=== PATIENT | female | born 1970 | race Caucasian/White ===

== ENCOUNTER 2021-11-20 07:57 | Outpatient (CLI) | payer BC, SELFPAY ==
--- NOTE | 2021-11-20 08:15 | CRLHL7_ITS ---
For Patients: As a result of the Century Cures Act, medical imaging exams and procedure reports are released immediately into your electronic medical record. You may view this report before your referring provider. If you have questions, please contact your health care provider. ULTRASOUND-GUIDED BREAST BIOPSY AND POST-BIOPSY DIGITAL MAMMOGRAM FOR BIOPSY MARKER PLACEMENT CLINICAL HISTORY: Suspicious mass. COMPARISON STUDIES: 11/14/2021 mammogram and ultrasound. TECHNIQUE: Real-time ultrasound with image documentation was used for targeting the breast lesion. Core biopsy specimens were obtained using an automated gun with a 18- gauge biopsy needle. Post-biopsy CC and ML digital mammograms were obtained to document position of the biopsy marker. CONSENT and TIME OUT: The procedure, risks, and alternatives were explained to the patient and a consent was signed. [place] Protocol was followed including pre-procedure verification that relevant information/documentation was available, reviewed and properly matched to the patient; consent accurate and complete; and equipment and supplies available. Time Out was conducted just prior to starting procedure to verify the four required elements: patient identity, correct side/site marked (if applicable), procedure, relevant images/results properly labeled and displayed (if applicable). PROCEDURE: The patient was positioned supine on the ultrasound table. The breast was prepped with ChloraPrep. 8 cc 1 percent lidocaine used for local anesthesia. Core samples were obtained. A sterile metal biopsy clip was placed percutaneously to lisa the lesion position within the breast. The specimens were placed in 10% formalin and sent to the pathology department. Pressure was held on the biopsy site until all bleeding subsided. The skin incision was closed with Steri-Strips. An ice pack was positioned over the biopsy site. Post-biopsy instructions were reviewed with the patient, and a written copy was given to her. LATERALITY: LEFT breast. LESION: Hypoechoic and microlobular solid mass measuring 1.3 x 0.9 x 2.9 cm at 9 o`clock 6 cm from the nipple. SUSPICION FOR MALIGNANCY: High. NUMBER OF SAMPLES: 5. BIOPSY CLIP SHAPE: Coil. PROXIMITY OF CLIP TO TARGET: Within the lesion. IMPRESSION: Ultrasound-guided breast biopsy. When the pathology report is available, an addendum to this report will be made. ACR not applicable Dictated by Jason Figueroa MD @ 11/20/2021 8:58:33 AM jj/Dictated by: Jason Figueroa MD @ 11/20/2021 8:58:00 AM ----- ADDENDUM ----- Pathology demonstrates invasive ductal carcinoma, grade 3/3. This is concordant. Appropriate action recommended. Dictated by Jason Figueroa MD @ Nov 20 2021 8:58AM Signed by:?Jason Figueroa MD @11/20/2021 12:23:28 PM (Electronic Signature)
--- NOTE | 2021-11-20 09:00 | CRLHL7_ITS ---
For Patients: As a result of the Century Cures Act, medical imaging exams and procedure reports are released immediately into your electronic medical record. You may view this report before your referring provider. If you have questions, please contact your health care provider. PLEASE SEE ULTRASOUND-GUIDED LEFT BREAST BIOPSY PERFORMED SAME DAY CRL:albertina eng/Dictated by: Jason Figueroa MD @ 11/20/2021 8:58:00 AM (Electronically Signed)
== END 2021-11-20 07:58 | disposition home or self-care (01) ==
LOC: US 07:59
PROVIDERS: PCP Family Medicine; Visit Provider Family Medicine
DX: C50.812 Malignant neoplasm of overlapping sites of left female breast (principal); Z17.0 Estrogen receptor positive status [ER+]
CPT/HCPCS: 19083; 77065; 88305; 88341; 88342; 88360; A4648; A4649

== ENCOUNTER 2021-12-03 14:23 | Outpatient (CLI) | payer BC, SELFPAY ==
--- NOTE | 2021-12-03 14:30 | CRLHL7_ITS ---
For Patients: As a result of the Century Cures Act, medical imaging exams and procedure reports are released immediately into your electronic medical record. You may view this report before your referring provider. If you have questions, please contact your health care provider. BILATERAL BREAST MRI WITHOUT AND WITH GADOLINIUM, 12/03/2021 CLINICAL HISTORY: Recently diagnosed LEFT breast cancer after ultrasound-guided biopsy of the palpable mass at 9 o`clock in the LEFT breast. INDICATION FOR BREAST MRI: Staging of newly diagnosed breast cancer and screening of contralateral breast. Regional lymph nodes will also be assessed. COMPARISON STUDIES: Diagnostic bilateral mammogram 11/14/2021 and screening mammogram 05/18/2013; images from ultrasound-guided left breast biopsy 11/20/2021. CONTRAST: 20 mL Dotarem. TECHNIQUE: The patient was positioned prone using a breast coil. Multiple imaging sequences were obtained using 1-1.5 mm thick slices with no gap. The image sequences include T2-weighted STIR in the axial plane, T1-weighted nonfat-saturated gradient echo in the axial plane, pre- and post-contrast T1-weighted FLASH 3D with fat suppression in the axial plane, and T1-weighted FLASH high resolution 3D with fat suppression in the sagittal plane. Image post-processing was performed on a [employer] workstation. Complex 3D rendering including maximum intensity projections (MIPS) and volumetric renderings were obtained to optimize visualization of the extent of pathology and relationship to the nipple, skin, and chest wall. This aids in determining feasibility of breast conservation surgery. Subtraction, multiplanar reconstruction, mean curve determination, and angiogenesis mapping were also performed. The study was technically adequate. FINDINGS: Amount of Fibroglandular Tissue: Almost entirely fatty. Breast Background Enhancement: Minimal. RIGHT Breast: There is no suspicious mass or enhancement within the breast. LEFT Breast: At 9 o`clock, 4 cm posterior to the nipple, there is a 1.9 x 2.7 x 1.1 cm irregular mass with spiculated margins demonstrating rapid initial washout delayed phase enhancement. There is susceptibility artifact within the mass from the clip marking the site of biopsy proven malignancy. There is no suspicious mass or enhancement elsewhere within the breast. Lymph Nodes: No abnormal morphology lymph nodes. IMPRESSIONS AND RECOMMENDATIONS: 1. The biopsy-proven LEFT breast cancer measures up to 2.7 cm on MRI. Continued surgical/oncologic management is recommended. 2. No MRI evidence of malignancy in the RIGHT breast. 3. No abnormal morphology lymph nodes. BI-RADS Category 6: Known Biopsy-Proven Malignancy Dictated by Ruby Martin MD @ 12/04/2021 9:56:07 AM PT/Dictated by: Ruby Martin MD @ 12/04/2021 9:56:00 AM (Electronically Signed)
== END 2021-12-03 14:24 | disposition home or self-care (01) ==
PROVIDERS: PCP Family Medicine; Visit Provider Surgery
DX: C50.912 Malignant neoplasm of unspecified site of left female breast (principal)
CPT/HCPCS: 77049; A9575

== ENCOUNTER 2021-12-17 12:57 | Outpatient (CLI) | payer BC, SELFPAY | END 2021-12-17 12:58 | disposition home or self-care (01) | PROVIDERS: PCP Family Medicine; Visit Provider Nurse Practitioner Family | DX: C50.919 Malignant neoplasm of unspecified site of unspecified female breast (principal); Z51.11 Encounter for antineoplastic chemotherapy | CPT/HCPCS: 93306 ==

== ENCOUNTER 2021-12-25 08:33 | Day surgery (SDC) | payer BC, SELFPAY ==
[2021-12-25] VITALS (11 sets, daily range): BP systolic 115–140; BP diastolic 60–89; PULSE 36–63; RESP 14–16; TEMP 36.1–36.6; O2SAT 96–98; BMI 51.2
--- NOTE | 2021-12-25 | CRLHL7_ITS ---
For Patients: As a result of the Century Cures Act, medical imaging exams and procedure reports are released immediately into your electronic medical record. You may view this report before your referring provider. If you have questions, please contact your health care provider. INDICATION: Post port placement. TECHNIQUE: Chest 1 views. COMPARISON: None. FINDINGS: Cardiovascular and mediastinum: Heart size and vasculature are normal in caliber and appearance. Port-A-Cath with tip projecting at the cavoatrial junction. Lungs and pleural spaces: Lungs are clear. No sign of infiltrate or mass. No sign of pleural effusion. No pneumothorax. Bones and soft tissues: No significant findings. IMPRESSION: Right Port-A-Cath with tip projecting at the cavoatrial junction. No pneumothorax. Dictated by Maik Briggs MD @ 12/25/2021 2:06:09 PM (Electronically Signed)
[2021-12-25] MEDS: LACTATED RINGERS 1000 ML 1,000 ML 100 ML IV (09:00)
[2021-12-25] MEDS: SODIUM CHLORIDE 0.9 % (FLUSH) 10 ML SYRINGE IVF (09:13)
--- NOTE | 2021-12-25 10:12 | CRLHL7_ITS ---
For Patients: As a result of the Century Cures Act, medical imaging exams and procedure reports are released immediately into your electronic medical record. You may view this report before your referring provider. If you have questions, please contact your health care provider. INDICATION: Intra op Port-A-Cath placement. TECHNIQUE: Intra op Port-A-Cath placement. IMPRESSION: Intraoperative Port-A-Cath placement with tip projecting near the cavoatrial junction. Two images saved. Fluoroscopy time 65.1 seconds. Dictated by Maik Briggs MD @ 12/25/2021 11:37:50 AM (Electronically Signed)
[2021-12-25] MEDS: CEFAZOLIN 2 GM INJ IVP (10:14)
--- NOTE | 2021-12-25 11:21 | W.ANESCHARGE ---
Anesthesia Charges Start Date/Time Anesthesia Start Date: 12/25/21 Anesthesia Start Time: 10:26 Stop Date/Time Anesthesia Stop Date: 12/25/21 Anesthesia Stop Time: 11:25 Summary Emergency: No
[2021-12-25] MEDS: BUPIVACAINE 0.25% 30 ML INJECTION (11:22)
--- NOTE | 2021-12-25 11:30 | PM.GSPRC ---
Operative Note Date of procedure: 12/25/21 Type of Procedure: 1. Right internal jugular Port-A-Cath placement under ultrasound and fluoroscopy guidance. Procedure Description: After discussing the risks and benefits of the procedure, the patient signed informed consent.? The operative site was marked and the patient was brought to the operating room and placed on the operating table in supine position.? Care was taken to pad the patient's pressure points.?? The patient was then sedated by anesthesia.?? The operative site was then prepped and draped in the usual sterile fashion.? A time-out was then performed. ? Ultrasound was brought on to the field and right internal jugular vein was assessed. This was found to be large and easily compressible. The base of the neck directly overlying the internal jugular vein was then anesthetized with 1% lidocaine and 0.25% Marcaine mixture, and an introducer needle was inserted into the internal jugular vein using ultrasound guidance. Entry into the vein was confirmed by the presence of dark, nonpulsatile blood. A guide wire was advanced through the needle. The introducer needle was removed, leaving the wire in place. Fluoroscopy was brought onto the field and used to confirm the passage of the wire through the superior vena cava and into the inferior vena cava. Lidocaine was then used to infiltrate the port skin site, along with the proposed tunneling tract. A 3 cm incision was made at the site of the port pocket and subcutaneous tissue was dissected down using electrocautery. Subcutaneous pocket was created with blunt dissection and electrocautery. The catheter was advanced through the subcutaneous tissue using a tunneling trocar, exiting the incision at the base of the neck. The trocar was then disconnected. Fluoroscopy was again brought on to the field and the internal jugular vein and adjacent subcutaneous tissue was dilated with a pre-split introducer sheath in place. The wire was removed and the catheter was inserted into the introducer sheath. As the catheter was advanced, the sheath was split and divided, removing the sheath as the catheter was advanced into place. Fluoroscopy was again brought on to the field and the catheter position was examined. The entire course of the catheter was then viewed, and catheter was pulled back under direct visualization to ensure that the tip is in the SVC. The port was connected to the catheter tip and placed into previously created pocket. Prolene was used to place anchoring port sutures and the port was then secured in the pocket. The flow through the catheter was checked with a syringe, and found to be excellent. The incision at the base of the neck was then closed with a single interrupted 4-0 monocryl stitch and dressed with a Steri-Strip and a sterile bandage. Subdermal layer was re-approximated with interrupted 3-0 vicryl stitches and skin over the port was closed with 4-0 monocryl using subcuticular stitch. Sofia needle was inserted through the skin into the port and the port was flushed with injectable saline. The port was left accessed for upcoming chemotherapy treatment today. Steri strips, sterile 2x2 and Tegaderm was applied over the incision. The patient was then roused and brought to same day surgery in satisfactory condition. Sponge and needle counts were correct at the end of the procedure. Post procedure CXR was ordered to be done in same day surgery. Findings: Easily compressible right internal jugular vein. Anesthesia: MAC and local Surgeon: Chiara Sainz MD Estimated blood loss (mL): 5 Condition: stable Disposition: PACU
--- NOTE | 2021-12-25 11:31 | W.ANESCHARGE ---
Anesthesia Charges Start Date/Time Anesthesia Start Date: 12/25/21 Anesthesia Start Time: 10:26 Stop Date/Time Anesthesia Stop Date: 12/25/21 Anesthesia Stop Time: 11:25 Summary Emergency: No
--- NOTE | 2021-12-25 13:33 | SUR.PHASEII ---
Called Infusion Center to give update on patient heart rate. Per nurse, pt is clear to come to infusion if she is stable for discharge from [facility]. Pt's heart rate remains in 50's after medication administration by anesthesia MD. Pt's blood pressure remains stable, pt up and ambulating to bathroom independently, denies dizziness or light headness.
== END 2021-12-25 13:36 | disposition home or self-care (01) ==
PROVIDERS: PCP Family Medicine; Visit Provider Surgery
PROC: (CPT 36561; principal; 2021-12-25 09:45)
DX: Z45.2 Encounter for adjustment and management of vascular access device (principal); C50.212 Malignant neoplasm of upper-inner quadrant of left female breast; Z17.0 Estrogen receptor positive status [ER+]
CPT/HCPCS: 36561; 00532; 71045; C1788; J0690; J3490; J7120

== ENCOUNTER 2022-05-16 13:30 | Outpatient (RCR) | payer BC, SELFPAY ==
--- NOTE | 2021-12-18 14:25 | URNOTE ---
Request received for authorization for Fosaprepitant (J1453), Palonosetron (J2469), Cyclophosphamide (J9070), Doxorubicin (J9000)-Prior authorization is not required per [facility], [facility], sales representative [employer] call reference #[id number]. Prior authorization is required for Pegfilgrastim (J2506) through [employer] at [phone], and medication ordered from speciality pharmacy [facility] at [phone]. Karin [facility] [place] [place] was given information for Pegfilgrastim.
--- NOTE | 2021-12-18 17:40 | ONC.NURNOTE ---
Addendum entered by Kati Flores RN 12/21/21 15:14: Enrolled pt in a copay assistance program through [employer], habilitation training specialist of Fulphila. Application faxed to [phone]. [facility]'s copay assistance to assist pt in enrolling in [employer], a program through [facility]. Completion of SaveOn enrollment is only possible once the [employer] copay assistance is completed. [employer] (Fulphila habilitation training specialist): p: [phone], f: [phone] [employer]: [phone] [facility] Copay Assistance: [phone], M-F 8a-6p EST Original Note: Breast E Commerce Manager Note Submitted authorization for Neulasta through [employer]. Neulasta not covered; prefer biosimilar Fulphila. Prior Authorization approved for Fulphila 6mg SC q 14 days #2 with 1 refill. Case #[id number]. Prescription for Fulphila called in to [facility]; they will call pt to set up delivery for home administration. They will notify pt and clinic of copay once prescription is processed. 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 [employer]: [facility]: p ; f
[2021-12-21 12:31] LABS: Basophils Absolute Auto 0.04 K/uL (0.00-0.30); Basophils Percent Auto 0.7 % (0.0-3.0); Eosinophils Absolute Auto 0.11 K/uL (0.00-0.50); Eosinophils Percent Auto 1.9 % (0.0-7.0); Hematocrit 44.3 % (33.0-51.0); Hemoglobin* 15.2 gm/dL (12.0-16.0); Immature Granulocytes Abs Auto 0.01 K/uL (0.00-0.30); Lymphocytes Percent Auto 41.2 % (20-44); Mean Corpuscular HGB Conc 34 gm/dL (32-36); Mean Corpuscular Hemoglobin 32 pg (26-34); Mean Corpuscular Volume 93 fL (80-100); Monocytes Percent Auto 6.7 % (0.0-11.0); Neutrophils Absolute Auto 2.88 K/uL (1.7-7.0); Neutrophils Percent Auto 49.3 % (42.0-72.0); Platelet Count* 212 K/uL (140-440); RDW Coefficient of Variation % 12.8 % (11.5-15.5); Red Blood Count 4.77 m/uL (4.00-5.20); White Blood Count* 5.83 K/uL (4.50-11.00)
[2021-12-21 12:35] LABS: Slide Review Reflex No
[2021-12-21 12:50] LABS: Albumin* 4.3 g/dL (3.3-5.0); Chloride* 104 mmol/L (96-114)
[2021-12-21 12:51] LABS: Potassium* 3.7 mmol/L (3.6-5.1); Sodium* 142 mmol/L (135-149)
[2021-12-21 12:53] LABS: Aspartate Amino Transferase* 43 U/L (12-35); Bilirubin Total* 0.5 mg/dL (0.1-1.5); Carbon Dioxide* 29 mmol/L (20-32); Estimated Glomerular Filt Rate 67 ml/min; Total Protein* 7.1 g/dL (6.0-8.3)
[2021-12-21 12:54] LABS: Alanine Aminotransferase* 38 U/L (4-35); Alkaline Phosphatase* 58 U/L (40-150); Blood Urea Nitrogen* 21 mg/dL (7-30); Calcium* 9.7 mg/dL (8.4-10.6); Glucose* 99 mg/dL (60-115)
--- NOTE | 2021-12-24 10:31 | ONC.NURNOTE ---
Called pt to [facility] in [facility] She states she has not heard from [facility] all weekend. Called [facility] and resubmitted pt's enrollment with [employer]. Confirmed pt's enrollment with [employer] is complete; pt's copay will be $0. Shipment is scheduled for Tu12/25 with delivery 12/26. Notified pt.
[2021-12-25] MEDS: PALONOSETRON 0.25 MG/5 ML inj IV (14:56)
[2021-12-25] MEDS: dexAMETHasone 12 MG in 0.9 % SODIUM CHLORIDE 100 ml 100 ML 404.8 MG IVPB (14:56)
[2021-12-25] MEDS: FOSAPREPITANT 150 MG inj 150 MG in 0.9 % SODIUM CHLORIDE 250 ml 250 ML 800 MG IVPB (15:23)
--- NOTE | 2021-12-25 17:00 | ONC.NURNOTE ---
Pt tolerated 1st AC well; reviewed antiemetic schedule and new port placement care. Pt to self-inject Fulphila after 5pm tomorrow 12/26; her daughter who is a medical pathologist will administer for her. Pt comfortable, talking and laughing with her . HR 62 at discharge. See note from Jessenia Salas APRN re: postop sinus bradycardia.
--- NOTE | 2021-12-25 19:34 | A.ONCFU_ITS ---
Intake Intake Visit Reasons: Breast cancer Allergies acetaminophen [From Tylenol] Allergy (Severe, Verified 12/25/21 08:44) Hives Latex, Natural Rubber Adverse Reaction (Mild, Verified 12/25/21 08:44) Rash Home Medications Dexamethasone (Dexamethasone 4 Mg Tablet) 12 mg PO ONCE TOSHIA Stop: 12/25/21 23:59 Doxorubicin HCl (Doxorubicin 2 Mg/Ml Inj) 130 mg IVP ONCE TOSHIA Stop: 12/25/21 23:59 Last Admin: 12/25/21 15:52 Dose: 130 mg Cyclophosphamide 1,300 mg/ IV Miscellaneous Supplies 1 each/Sodium Chloride 256.5 mls @ 513 mls/hr IV ONCE TOSHIA Stop: 12/25/21 23:59 Last Infusion: 12/25/21 16:47 Dose: Infused Fosaprepitant 150 mg/ Sodium (Chloride) 255 mls @ 510 mls/hr IVPB ONCE TOSHIA Stop: 12/25/21 23:59 Last Infusion: 12/25/21 15:43 Dose: Infused Palonosetron (Palonosetron 0.25 Mg/5 Ml Inj) 0.25 mg IV ONCE TOSHIA Stop: 12/25/21 23:59 Last Admin: 12/25/21 14:56 Dose: 0.25 mg Referred by:: Don Brown MD Nutrition Screen Have you recently lost weight without trying?: no HPI HPI Patient Seen On:: Dec 25, 2021 Reason for consultation: Left breast cancer Bradycardia after portacath insertion earlier today, concern for concurrent administration of cardiotoxic chemotherapy History source: patient and family () Oncology Hx: 1. November 2021: Patient noted lump in left breast, reported to her primary care 2. November 2021: Mammogram completed showing asymmetry in the upper inner quadrant of the left breast at the 9 o'clock position. 3. 11/20/2021: Patient proceeded with an ultrasound, again showing an approximately 3 cm hypoechoic a mass in the 9 o'clock position of the left breast. Patient proceeded to core needle biopsy. Biopsy revealing an invasive ductal carcinoma, grade 3, angiolymphatic invasion not present, no associated DCIS. Estrogen was positive weakly at 11%, progesterone negative and HER2 was negative. Ki-67 60%. 4. 11/26/2021: Surgical consultation with Dr. Hyde 5. 12/03/2021: MRI bilateral breast completed, showing mass in the left breast consistent with previous findings, right breast negative for any concerning findings and no lymph nodes concerning bilaterally. 6. 12/13/2021: Medical oncology consultation for discussion surrounding neoadjuvant chemotherapy Patient is a delightful 51-year-old here today for medical oncology cons ultation and discussion surrounding her newly diagnosed breast cancer. She did meet earlier with the surgeon, status post imaging and biopsy showing asymmetric mass in the left breast, positive for invasive ductal carcinoma. Several weeks ago, she felt some changes in her left breast, and felt approximately a marble size nodule near the swelling. She did report this to her primary care, who proceeded with further workup with mammogram and ultrasound, showing an approximately 2.9 cm hypoechoic mass on the left breast. She underwent core needle biopsy, with pathology revealing an invasive ductal carcinoma grade 3, no angiolymphatic invasion and no associated DCIS, ER positive at 11%, NJ negative and HER2 negative with Ki-67 at 60%. She did meet with Dr. Hyde in surgery prior to our appointment for surgical discussion. Patient had a mammogram at approximately age 38 and had not had any mammograms up until recently when she found her lump. She has denies any previous breast issues or biopsies. She has never had radiation to the chest wall, no use of hormones, she did use control very shortly just before the onset of menopause. Age of onset of menses approximately age 10. , 2 miscarriages, both children , age at 1st live 19. She did not breast feed. She also has 3 non biological children through marriage to her . States she went through menopause approximately 5-6 years ago. She denies any cancer history for herself. Mom with a history of bladder cancer and lung cancer, she was a smoker. She is unsure of her dad history Maternal grandmother with colon cancer No cancer within her siblings Had genetic testing completed, still is awaiting results. Also completed a screening colonoscopy negative for cancer. She works as a direct care services person, she states she works 2 jobs and pretty much every day. She is to her Josue of 20 years. Two biological children 3 nonbiological children and 11 grandchildren She is a past smoker, stopped in 2011. Denies vape use. It has been years since her last alcoholic drink, denies any illicit drugs. She is feeling well today. She denies any headaches or dizziness. No chest pain or pressure, cough or shortness of breath. No abdominal pain or pressure, she does have a history of constipation however has not had that since her colonoscopy. No diarrhea. Appetite is good. She is fatigued, however she works 2 jobs pretty much 7 days a week. She does have bad shoulders and elbows related to her job, but no numbness or tingling. She denies any cardiac issues although she was told she had a murmur sometime back. Interval Hx: Ms. Alexis arrived ambulatory accompanied with her to the [facility] after having Port-A-Cath placed in surgery this morning. It was reported that she required romazicon reversal in recovery area due to worsening bradycardia with ventricular pulse rate in the 30s. She was discharged stable per report from recovery area. Oncology nurses with concern for administration of cardiotoxic chemotherapy today. Upon arrival, temperature 96.7?, pulse 77, respirations 18, blood pressure 136/72, O2 saturation 98% on room air. In chart review, no noted evidence for cardiovascular disease. Baseline echocardiogram obtained 12/17/2021 prior to cardiotoxic chemotherapy final impressions: 1. normal left ventricular size, borderline wall thickness, normal global systolic function, calculated ejection fraction of 68%. 2. no significant bowel disease detected. 3. the ascending aorta is dilated with maximal diameter of 3.8 cm. 4. normal estimated pulmonary pressures by tricuspid valve regurgitation velocity and right atrial pressure (13 mm Hg plus RAP). Obesity risk factor. Patient, alert,oriented, pleasant, skin dry and pink, eating a snack in [facility] Social History Smoking Status: Unknown if ever smoked How often do you have a drink containing alcohol: never How often do you have six or more drinks on one occasion: Never AUDIT-C Alcohol total score: 0 Non-prescribed substance use: denies use Caffeine: Yes Review of Systems Status of ROS Reports: 6 or more systems reviewed and unremarkable except as noted in History and below Narrative Denies shortness of breath, cough, rapid or irregular pulse, chest pain or pressure, history of cardiovascular disease, pedal edema, calf pain. She does endorse chronic dizziness upon arising and compensates by getting up slowly. This is chronic by her report. Exam Narrative Exam Narrative: Constitutional: Alert, oriented x3, fatigued-appearing, in no apparent distre ss. HEENT: JOSE ELIAS, dry mucous membranes, cranial nerves grossly intact. Lungs: Clear to auscultation anteriorly bilaterally. Respirations nonlabored an even. Cardiovascular: S1-S2. Distant heart tones. No extra heart tones murmurs or clicks detected Abdomen: soft, obese. MSK: MAEx4. No pedal edema. SKIN: Warm, dry, pink. Faint mild bruising at portacath site. No significant edema noted. ECOG Eastern Cooperative Oncology Group Performance Status (ECOG): 1 Results Results [facility] Chemistry: Sodium 142 mmol/L (135-149) 12/21/21 Potassium 3.7 mmol/L (3.6-5.1) 12/21/21 Chloride 104 mmol/L (96-114) 12/21/21 Carbon Dioxide 29 mmol/L (20-32) 12/21/21 Calcium 9.7 mg/dL (8.4-10.6) 12/21/21 Glucose 99 mg/dL (60-115) 12/21/21 BUN 21 mg/dL (7-30) 12/21/21 Creatinine 1.0 mg/dL (0.5-1.5) 12/21/21 Total Protein 7.1 g/dL (6.0-8.3) 12/21/21 Albumin 4.3 g/dL (3.3-5.0) 12/21/21 AST 43 U/L (12-35) H 12/21/21 ALT 38 U/L (4-35) H 12/21/21 Alkaline Phosphatase 58 U/L (40-150) 12/21/21 Total Bilirubin 0.5 mg/dL (0.1-1.5) 12/21/21 Estimated GFR 67 ml/min 12/21/21 [facility] Hematology: WBC 5.83 K/uL (4.50-11.00) 12/21/21 RBC 4.77 m/uL (4.00-5.20) 12/21/21 Hgb 15.2 gm/dL (12.0-16.0) 12/21/21 Hct 44.3 % (33.0-51.0) 12/21/21 MCV 93 fL (80-100) 12/21/21 MCH 32 pg (26-34) 12/21/21 MCHC 34 gm/dL (32-36) 12/21/21 Plt Count 212 K/uL (140-440) 12/21/21 Neut % (Auto) 49.3 % (42.0-72.0) 12/21/21 Neut # (Auto) 2.88 K/uL (1.7-7.0) 12/21/21 Lymph % (Auto) 41.2 % (20-44) 12/21/21 [place] % (Auto) 6.7 % (0.0-11.0) 12/21/21 Eos % (Auto) 1.9 % (0.0-7.0) 12/21/21 Baso % (Auto) 0.7 % (0.0-3.0) 12/21/21 Lab Results Reviewed: Yes I reviewed the patient's lab results MDM - Oncology Visit ECG Data Attestation: I personally reviewed and interpreted this ECG as follows: Interpretation: Low-voltage EKG. Ventricular rate 58 beats per minute. NJ interval 174 MS, QRS 84 MS, QTC 420/QTC 412 MS. Sinus bradycardia without additional ectopy. Other Provider Discussed patient with other provider: Dr. Sanjiv Doyle, Anesthesia Shared Decision Patient participated in the treatment plan decision making?: Yes Assessment & Plan Assessment & Plan (1) Breast cancer in female: Problem Comment: [id number], ER+(11%),NJ-HER2-, Gr3, Ki67 60% Code(s): C50.919 - Malignant neoplasm of unspecified site of unspecified female breast Category: Medical (2) Chemotherapy management, encounter for: Code(s): Z51.11 - Encounter for antineoplastic chemotherapy Category: Medical (3) Bradycardia: Code(s): R00.1 - Bradycardia, unspecified Category: Medical Plan Discussed bradycardia with DR. Doyle, anesthesia who noted that Ms. Alexis had bradycardia during entire case, but dropped pulse to 36-38, prompting him to administer partial reversal rumazicon. Ms Alexis was reported to remain alert in recovery, hemodynamically stable. On 3 electrode telemetry, sinus bradycardia during case. Based on his discussion, EKG obtained, which confirmed sinus bradycardia. Ms. Alexis denies heart history, except for slow pulse and dizziness with arising. Baseline Echo obtained prior to today's chemotherapy sufficient to proceed with treatment. - OK to proceed with first cycle of dose dense doxorubicin and cyclophosphamide today. Ms. Alexis was encouraged to push fluids and remain hydrated at home. She is to call for increased dizziness with position change or other neurologic symptoms. Recommend for her to discuss with Dr. Brown, her primary care provider, at her next visit and I will copy this note to him as well. Ms. Alexis was noted to tolerate chemotherapy today without incident. I will also update Bernarda Scherer APRN, CNP, [facility]. Ms. Alexis and her are aware of this plan and agreeable.
--- NOTE | 2021-12-26 14:14 | ONC.NURNOTE ---
Pt called today stating her fuljustolia did arrive today and her daughter plans on administering pt the drug around 6pm this evening.
--- NOTE | 2022-01-07 16:17 | ONC.NURNOTE ---
Received call from pt saying she developed diarrhea on Friday that continued over the weekend through today. She has been eating and drinking normal amounts until yesterday, citing throwing up in her mouth Friday and today. She notes she felt well despite having frequent loose, watery stools until today, as she was up in the night with frequent watery stools. She feels very tired today but denies fevers. When asked about diet changes, she notes she ate take out Friday around the time the diarrhea started. Recommended pt be seen by a PCP to r/o infection/food poisoning. Reviewed that once infectious process is ruled out, pt would take immodium per box instructions: 2 after 1st loose stool, then 1 after subsequent loose stools up to daily max. Also recommended OTC electrolyte drinks like Gatorade or Pedialyte. Checked in with pt this afternoon. She notes difficulty scheduling to see her PCP Dr. Brown today and was not seen by a stone sandblaster. Also, she began Immodium. She has taken 5 so far today and has been napping; she continues to have loose stools but notes she is feeling better overall. She has drunk 2 bottles of gatorade. Reviewed the risks of taking Imodium with an active infectious process, including worsening infection and possible treatment delay and reinforced need to see a PCP in the next day or so if symptoms continue off Imodium. Pt acknowledges.
[2022-01-10 08:07] LABS: Basophils Absolute Auto 0.06 K/uL (0.00-0.30); Basophils Percent Auto 0.9 % (0.0-3.0); Eosinophils Absolute Auto 0.01 K/uL (0.00-0.50); Eosinophils Percent Auto 0.2 % (0.0-7.0); Hematocrit 38.3 % (33.0-51.0); Hemoglobin* 13.4 gm/dL (12.0-16.0); Immature Granulocytes Abs Auto 0.14 K/uL (0.00-0.30); Immature Granulocytes Pct Auto 2.1 %; Lymphocytes Absolute Auto 1.96 K/uL (0.90-2.90); Lymphocytes Percent Auto 29.9 % (20-44); Mean Corpuscular HGB Conc 35 gm/dL (32-36); Mean Corpuscular Hemoglobin 32 pg (26-34); Mean Corpuscular Volume 91 fL (80-100); Monocytes Percent Auto 7.6 % (0.0-11.0); Neutrophils Absolute Auto 3.88 K/uL (1.7-7.0); Neutrophils Percent Auto 59.3 % (42.0-72.0); Platelet Count* 201 K/uL (140-440); RDW Coefficient of Variation % 12.7 % (11.5-15.5); Red Blood Count 4.22 m/uL (4.00-5.20); White Blood Count* 6.55 K/uL (4.50-11.00)
[2022-01-10 08:09] LABS: Slide Review Reflex No
[2022-01-10 08:20] LABS: Albumin* 3.8 g/dL (3.3-5.0); Chloride* 107 mmol/L (96-114)
[2022-01-10 08:21] LABS: Potassium* 3.5 mmol/L (3.6-5.1); Sodium* 139 mmol/L (135-149)
[2022-01-10 08:23] LABS: Alkaline Phosphatase* 69 U/L (40-150); Aspartate Amino Transferase* 30 U/L (12-35); Bilirubin Total* 0.3 mg/dL (0.1-1.5); Blood Urea Nitrogen* 17 mg/dL (7-30); Carbon Dioxide* 25 mmol/L (20-32); Creatinine* 0.8 mg/dL (0.5-1.5); Estimated Glomerular Filt Rate 88 ml/min; Total Protein* 6.3 g/dL (6.0-8.3)
[2022-01-10 08:24] LABS: Alanine Aminotransferase* 30 U/L (4-35); Calcium* 8.9 mg/dL (8.4-10.6); Glucose* 95 mg/dL (60-115)
[2022-01-10] MEDS: PALONOSETRON 0.25 MG/5 ML inj IV (09:27)
[2022-01-10] MEDS: dexAMETHasone 12 MG in 0.9 % SODIUM CHLORIDE 100 ml 100 ML 404.8 MG IVPB (10:01)
[2022-01-10] MEDS: FOSAPREPITANT 150 MG inj 150 MG in 0.9 % SODIUM CHLORIDE 250 ml 250 ML 765 MG IVPB (10:13)
[2022-01-10] MEDS: SODIUM CHLORIDE 0.9 % (FLUSH) 10 ML SYRINGE IVF (11:42)
[2022-01-10] MEDS: HEPARIN 500 UNIT/5 ML SYRINGE IVF (11:42)
[2022-01-10] MEDS: 0.9 % SODIUM CHLORIDE 250 ml IV (11:43)
[2022-01-23 09:04] LABS: Basophils Percent Auto 1.1 % (0.0-3.0); Eosinophils Absolute Auto 0.09 K/uL (0.00-0.50); Hematocrit 35.8 % (33.0-51.0); Hemoglobin* 12.2 gm/dL (12.0-16.0); Immature Granulocytes Abs Auto 0.76 K/uL (0.00-0.30); Immature Granulocytes Pct Auto 8.2 %; Mean Corpuscular HGB Conc 34 gm/dL (32-36); Mean Corpuscular Hemoglobin 32 pg (26-34); Mean Corpuscular Volume 94 fL (80-100); Monocytes Percent Auto 7.3 % (0.0-11.0); Neutrophils Absolute Auto 6.33 K/uL (1.7-7.0); Neutrophils Percent Auto 68.4 % (42.0-72.0); Platelet Count* 107 K/uL (140-440); Red Blood Count 3.82 m/uL (4.00-5.20); White Blood Count* 9.24 K/uL (4.50-11.00)
[2022-01-23 09:08] LABS: Slide Review Reflex No
[2022-01-23 09:17] LABS: Albumin* 3.9 g/dL (3.3-5.0); Chloride* 108 mmol/L (96-114)
[2022-01-23 09:18] LABS: Sodium* 139 mmol/L (135-149)
[2022-01-23 09:20] LABS: Aspartate Amino Transferase* 30 U/L (12-35); Bilirubin Total* 0.4 mg/dL (0.1-1.5); Carbon Dioxide* 27 mmol/L (20-32); Creatinine* 0.8 mg/dL (0.5-1.5); Estimated Glomerular Filt Rate 88 ml/min; Total Protein* 6.3 g/dL (6.0-8.3)
[2022-01-23 09:21] LABS: Alanine Aminotransferase* 28 U/L (4-35); Alkaline Phosphatase* 90 U/L (40-150); Blood Urea Nitrogen* 20 mg/dL (7-30); Calcium* 8.7 mg/dL (8.4-10.6); Glucose* 107 mg/dL (60-115)
[2022-01-23] MEDS: SODIUM CHLORIDE 0.9 % (FLUSH) 10 ML SYRINGE IVF (10:09)
[2022-01-23] MEDS: PALONOSETRON 0.25 MG/5 ML inj IV (10:09)
[2022-01-23] MEDS: 0.9 % SODIUM CHLORIDE 250 ml IV (10:10)
[2022-01-23] MEDS: FOSAPREPITANT 150 MG inj 150 MG in 0.9 % SODIUM CHLORIDE 250 ml 250 ML 510 MG IVPB (10:38)
[2022-01-23] MEDS: dexAMETHasone 12 MG in 0.9 % SODIUM CHLORIDE 100 ml 100 ML 404.8 MG IVPB (11:24)
[2022-02-07 09:12] LABS: Basophils Absolute Auto 0.11 K/uL (0.00-0.30); Basophils Percent Auto 1.1 % (0.0-3.0); Eosinophils Absolute Auto 0.04 K/uL (0.00-0.50); Eosinophils Percent Auto 0.4 % (0.0-7.0); Hematocrit 31.9 % (33.0-51.0); Hemoglobin* 10.9 gm/dL (12.0-16.0); Immature Granulocytes Abs Auto 0.59 K/uL (0.00-0.30); Immature Granulocytes Pct Auto 5.8 %; Lymphocytes Percent Auto 10.7 % (20-44); Mean Corpuscular HGB Conc 34 gm/dL (32-36); Mean Corpuscular Hemoglobin 32 pg (26-34); Mean Corpuscular Volume 94 fL (80-100); Platelet Count* 168 K/uL (140-440); RDW Coefficient of Variation % 14.7 % (11.5-15.5); White Blood Count* 10.12 K/uL (4.50-11.00)
[2022-02-07 09:18] LABS: Slide Review Reflex No
[2022-02-07 09:33] LABS: Albumin* 3.9 g/dL (3.3-5.0); Chloride* 108 mmol/L (96-114)
[2022-02-07 09:34] LABS: Potassium* 3.7 mmol/L (3.6-5.1); Sodium* 141 mmol/L (135-149)
[2022-02-07 09:36] LABS: Aspartate Amino Transferase* 27 U/L (12-35); Bilirubin Total* 0.5 mg/dL (0.1-1.5); Carbon Dioxide* 26 mmol/L (20-32); Creatinine* 0.8 mg/dL (0.5-1.5); Estimated Glomerular Filt Rate 88 ml/min; Total Protein* 6.4 g/dL (6.0-8.3)
[2022-02-07 09:37] LABS: Alanine Aminotransferase* 25 U/L (4-35); Alkaline Phosphatase* 90 U/L (40-150); Blood Urea Nitrogen* 15 mg/dL (7-30); Calcium* 8.9 mg/dL (8.4-10.6); Glucose* 106 mg/dL (60-115)
[2022-02-07] MEDS: dexAMETHasone 12 MG in 0.9 % SODIUM CHLORIDE 100 ml 100 ML 404.8 MG IVPB (10:47)
[2022-02-07] MEDS: PALONOSETRON 0.25 MG/5 ML inj IV (10:47)
[2022-02-07] MEDS: HEPARIN 500 UNIT/5 ML SYRINGE IVF (10:47)
[2022-02-07] MEDS: SODIUM CHLORIDE 0.9 % (FLUSH) 10 ML SYRINGE IVF (10:47)
[2022-02-07] MEDS: 0.9 % SODIUM CHLORIDE 250 ml IV (10:47)
[2022-02-07] MEDS: FOSAPREPITANT 150 MG inj 150 MG in 0.9 % SODIUM CHLORIDE 250 ml 250 ML 510 MG IVPB (11:10)
--- NOTE | 2022-02-07 12:32 | ONC.NURNOTE ---
Accompanied patient to her oncology visit. Taxol teaching completed. Discussed cryotherapy. Patient was given information on how to order supplies and was also given a former patients supplies if she would like to use those. Patient verbalizes understanding to bring supplies frozen to her first Taxol infusion appointment on 02/21.
--- NOTE | 2022-02-14 11:38 | URNOTE ---
REceived request for prior auth for Taxol ([id number]). Per Tana Austin at , prior authorization is not required. Call ref #[id number]
[2022-02-21 08:39] VITALS: BP 110/78; PULSE 82; RESP 16; TEMP 36.3; O2SAT 97
[2022-02-21 08:53] LABS: Basophils Absolute Auto 0.09 K/uL (0.00-0.30); Basophils Percent Auto 1.1 % (0.0-3.0); Eosinophils Absolute Auto 0.08 K/uL (0.00-0.50); Eosinophils Percent Auto 0.9 % (0.0-7.0); Hemoglobin* 9.8 gm/dL (12.0-16.0); Immature Granulocytes Abs Auto 0.35 K/uL (0.00-0.30); Immature Granulocytes Pct Auto 4.1 %; Lymphocytes Percent Auto 8.7 % (20-44); Mean Corpuscular HGB Conc 34 gm/dL (32-36); Mean Corpuscular Hemoglobin 33 pg (26-34); Mean Corpuscular Volume 97 fL (80-100); Monocytes Percent Auto 9.1 % (0.0-11.0); Neutrophils Percent Auto 76.1 % (42.0-72.0); Platelet Count* 127 K/uL (140-440); RDW Coefficient of Variation % 17.5 % (11.5-15.5); Red Blood Count 2.98 m/uL (4.00-5.20); White Blood Count* 8.48 K/uL (4.50-11.00)
[2022-02-21 09:11] LABS: Slide Review Reflex No
[2022-02-21 09:15] LABS: Albumin* 3.7 g/dL (3.3-5.0); Chloride* 110 mmol/L (96-114)
[2022-02-21 09:16] LABS: Potassium* 3.5 mmol/L (3.6-5.1); Sodium* 141 mmol/L (135-149)
[2022-02-21 09:18] LABS: Aspartate Amino Transferase* 25 U/L (12-35); Bilirubin Total* 0.5 mg/dL (0.1-1.5); Carbon Dioxide* 27 mmol/L (20-32); Creatinine* 0.7 mg/dL (0.5-1.5); Estimated Glomerular Filt Rate 103 ml/min; Total Protein* 6.1 g/dL (6.0-8.3)
[2022-02-21 09:19] LABS: Alanine Aminotransferase* 23 U/L (4-35); Alkaline Phosphatase* 81 U/L (40-150); Blood Urea Nitrogen* 15 mg/dL (7-30); Calcium* 8.6 mg/dL (8.4-10.6); Glucose* 104 mg/dL (60-115)
[2022-02-21] MEDS: PALONOSETRON 0.25 MG/5 ML inj IVP (10:29)
[2022-02-21] MEDS: 0.9 % SODIUM CHLORIDE 250 ml IV (10:29)
[2022-02-21] MEDS: dexAMETHasone 20 MG in 0.9 % SODIUM CHLORIDE 100 ml 100 ML 408 MG IVPB (10:29)
[2022-02-21] MEDS: FAMOTIDINE 20 MG, diphenhydrAMINE 50 MG in 0.9 % SODIUM CHLORIDE 100 ml 100 ML 309 MG IVPB (10:55)
[2022-02-21] MEDS: MICRON FILTER SET IV (11:28)
[2022-02-21] MEDS: IN LINE IV (11:28)
[2022-02-21] MEDS: PACLITAXEL IV (11:28)
[2022-02-21] MEDS: TUBING PRIMARY IV (11:28)
[2022-02-21] MEDS: [UNRECOGNIZED DRUG - OTHER] IV (11:28)
[2022-02-21] MEDS: SODIUM CHLORIDE 0.9 % (FLUSH) 10 ML SYRINGE IVF (13:03)
[2022-02-21] MEDS: HEPARIN 500 UNIT/5 ML SYRINGE IVF (13:03)
--- NOTE | 2022-02-22 09:14 | ONC.NURNOTE ---
Call to patient in follow up to new start Taxol. Patient states that she is feeling good. She denies any side effects, questions or concerns. Patient will return to clinic 10/29 for next cycle of Taxol. Patient verbalizes understanding of plan.
[2022-02-28 08:50] VITALS: BP 113/76; PULSE 98; RESP 18; TEMP 36.4; O2SAT 95
[2022-02-28 09:11] LABS: Basophils Absolute Auto 0.09 K/uL (0.00-0.30); Basophils Percent Auto 1.7 % (0.0-3.0); Eosinophils Absolute Auto 0.09 K/uL (0.00-0.50); Eosinophils Percent Auto 1.7 % (0.0-7.0); Hematocrit 26.4 % (33.0-51.0); Hemoglobin* 9.1 gm/dL (12.0-16.0); Immature Granulocytes Abs Auto 0.05 K/uL (0.00-0.30); Immature Granulocytes Pct Auto 0.9 %; Lymphocytes Percent Auto 10.3 % (20-44); Mean Corpuscular HGB Conc 35 gm/dL (32-36); Mean Corpuscular Hemoglobin 33 pg (26-34); Mean Corpuscular Volume 97 fL (80-100); Monocytes Percent Auto 11.4 % (0.0-11.0); Platelet Count* 238 K/uL (140-440); RDW Coefficient of Variation % 17.2 % (11.5-15.5); Red Blood Count 2.73 m/uL (4.00-5.20); White Blood Count* 5.42 K/uL (4.50-11.00)
[2022-02-28 09:17] LABS: Slide Review Reflex No
[2022-02-28 09:26] LABS: Albumin* 3.8 g/dL (3.3-5.0); Chloride* 107 mmol/L (96-114)
[2022-02-28 09:27] LABS: Potassium* 3.9 mmol/L (3.6-5.1); Sodium* 139 mmol/L (135-149)
[2022-02-28 09:29] LABS: Aspartate Amino Transferase* 30 U/L (12-35); Bilirubin Total* 0.6 mg/dL (0.1-1.5); Carbon Dioxide* 26 mmol/L (20-32); Creatinine* 0.8 mg/dL (0.5-1.5); Est. Creatinine Clearance* 145.24; Estimated Glomerular Filt Rate 88 ml/min
[2022-02-28 09:30] LABS: Alanine Aminotransferase* 24 U/L (4-35); Alkaline Phosphatase* 68 U/L (40-150); Blood Urea Nitrogen* 17 mg/dL (7-30); Calcium* 8.9 mg/dL (8.4-10.6); Glucose* 128 mg/dL (60-115); Total Protein* 6.1 g/dL (6.0-8.3)
[2022-02-28] MEDS: 0.9 % SODIUM CHLORIDE 250 ml IV (10:00)
[2022-02-28] MEDS: dexAMETHasone 20 MG in 0.9 % SODIUM CHLORIDE 100 ml 100 ML 408 MG IVPB (10:05)
[2022-02-28] MEDS: PALONOSETRON 0.25 MG/5 ML inj IVP (10:06)
[2022-02-28] MEDS: FAMOTIDINE 20 MG, diphenhydrAMINE 50 MG in 0.9 % SODIUM CHLORIDE 100 ml 100 ML 309 MG IVPB (10:34)
[2022-02-28] MEDS: PACLITAXEL IV (10:54)
[2022-02-28] MEDS: [UNRECOGNIZED DRUG - OTHER] IV (10:54)
[2022-02-28] MEDS: IN LINE IV (10:54)
[2022-02-28] MEDS: TUBING PRIMARY IV (10:54)
[2022-02-28] MEDS: MICRON FILTER SET IV (10:54)
[2022-03-07 09:09] LABS: Basophils Percent Auto 1.3 % (0.0-3.0); Eosinophils Percent Auto 3.9 % (0.0-7.0); Hematocrit 27.7 % (33.0-51.0); Hemoglobin* 9.4 gm/dL (12.0-16.0); Immature Granulocytes Pct Auto 1.3 %; Lymphocytes Percent Auto 15.5 % (20-44); Mean Corpuscular HGB Conc 34 gm/dL (32-36); Mean Corpuscular Hemoglobin 34 pg (26-34); Mean Corpuscular Volume 99 fL (80-100); Monocytes Percent Auto 11.1 % (0.0-11.0); Neutrophils Percent Auto 66.9 % (42.0-72.0); Platelet Count* 197 K/uL (140-440); Red Blood Count 2.79 m/uL (4.00-5.20)
[2022-03-07] MEDS: SODIUM CHLORIDE 0.9 % (FLUSH) 10 ML SYRINGE IVF ×3 (09:14→12:39)
[2022-03-07 09:18] LABS: Albumin* 3.9 g/dL (3.3-5.0); Chloride* 108 mmol/L (96-114); Potassium* 3.7 mmol/L (3.6-5.1); Sodium* 139 mmol/L (135-149)
[2022-03-07 09:21] LABS: Alanine Aminotransferase* 28 U/L (4-35); Alkaline Phosphatase* 60 U/L (40-150); Aspartate Amino Transferase* 30 U/L (12-35); Bilirubin Total* 0.6 mg/dL (0.1-1.5); Blood Urea Nitrogen* 16 mg/dL (7-30); Carbon Dioxide* 25 mmol/L (20-32); Creatinine* 0.7 mg/dL (0.5-1.5); Est. Creatinine Clearance* 165.99; Estimated Glomerular Filt Rate 103 ml/min; Glucose* 142 mg/dL (60-115); Total Protein* 6.3 g/dL (6.0-8.3)
[2022-03-07 09:25] LABS: Slide Review Reflex No
[2022-03-07] MEDS: 0.9 % SODIUM CHLORIDE 250 ml IV (10:30)
[2022-03-07] MEDS: PALONOSETRON 0.25 MG/5 ML inj IVP (10:30)
[2022-03-07] MEDS: HEPARIN 500 UNIT/5 ML SYRINGE IVF ×2 (10:30→12:39)
[2022-03-07] MEDS: dexAMETHasone 20 MG in 0.9 % SODIUM CHLORIDE 100 ml 100 ML 408 MG IVPB (10:30)
[2022-03-07] MEDS: FAMOTIDINE 20 MG, diphenhydrAMINE 50 MG in 0.9 % SODIUM CHLORIDE 100 ml 100 ML 309 MG IVPB (10:52)
[2022-03-07] MEDS: IN LINE IV (11:10)
[2022-03-07] MEDS: TUBING PRIMARY IV (11:10)
[2022-03-07] MEDS: [UNRECOGNIZED DRUG - OTHER] IV (11:10)
[2022-03-07] MEDS: PACLITAXEL IV (11:10)
[2022-03-07] MEDS: MICRON FILTER SET IV (11:10)
[2022-03-14 09:02] VITALS: BP 114/79; PULSE 84; RESP 16; TEMP 36.9; O2SAT 94
[2022-03-14 09:26] LABS: Basophils Percent Auto 1.4 % (0.0-3.0); Eosinophils Percent Auto 4.9 % (0.0-7.0); Hematocrit 25.8 % (33.0-51.0); Hemoglobin* 8.7 gm/dL (12.0-16.0); Immature Granulocytes Pct Auto 1.2 %; Lymphocytes Percent Auto 14.4 % (20-44); Mean Corpuscular HGB Conc 34 gm/dL (32-36); Mean Corpuscular Hemoglobin 34 pg (26-34); Mean Corpuscular Volume 100 fL (80-100); Monocytes Percent Auto 8.9 % (0.0-11.0); Neutrophils Percent Auto 69.2 % (42.0-72.0); Platelet Count* 191 K/uL (140-440); RDW Coefficient of Variation % 17.7 % (11.5-15.5); Red Blood Count 2.58 m/uL (4.00-5.20); White Blood Count* 3.47 K/uL (4.50-11.00)
[2022-03-14 09:27] LABS: Slide Review Reflex No
[2022-03-14 09:45] LABS: Albumin* 3.7 g/dL (3.3-5.0); Chloride* 107 mmol/L (96-114); Potassium* 3.8 mmol/L (3.6-5.1); Sodium* 138 mmol/L (135-149)
[2022-03-14 09:48] LABS: Alanine Aminotransferase* 27 U/L (4-35); Alkaline Phosphatase* 57 U/L (40-150); Aspartate Amino Transferase* 31 U/L (12-35); Bilirubin Total* 0.7 mg/dL (0.1-1.5); Blood Urea Nitrogen* 13 mg/dL (7-30); Carbon Dioxide* 27 mmol/L (20-32); Creatinine* 0.7 mg/dL (0.5-1.5); Est. Creatinine Clearance* 164.32; Estimated Glomerular Filt Rate 103 ml/min; Glucose* 127 mg/dL (60-115)
[2022-03-14 09:49] LABS: Calcium* 9.1 mg/dL (8.4-10.6)
[2022-03-14] MEDS: dexAMETHasone 20 MG in 0.9 % SODIUM CHLORIDE 100 ml 100 ML 408 MG IVPB (10:40)
[2022-03-14] MEDS: PALONOSETRON 0.25 MG/5 ML inj IVP (10:40)
[2022-03-14] MEDS: FAMOTIDINE 20 MG, diphenhydrAMINE 50 MG in 0.9 % SODIUM CHLORIDE 100 ml 100 ML 309 MG IVPB (11:04)
[2022-03-14] MEDS: [UNRECOGNIZED DRUG - OTHER] IV (11:30)
[2022-03-14] MEDS: MICRON FILTER SET IV (11:30)
[2022-03-14] MEDS: TUBING PRIMARY IV (11:30)
[2022-03-14] MEDS: IN LINE IV (11:30)
[2022-03-14] MEDS: PACLITAXEL IV (11:30)
[2022-03-14] MEDS: HEPARIN 500 UNIT/5 ML SYRINGE IVF (12:55)
[2022-03-14] MEDS: SODIUM CHLORIDE 0.9 % (FLUSH) 10 ML SYRINGE IVF (12:55)
--- NOTE | 2022-03-19 10:51 | ONC.NURNOTE ---
Call from patient with an update on her condition. Patient states that starting Thursday 03/16, she felt extremely fatigued and drained. Starting Friday and into Friday, she had diarrhea (5 episodes total) and her PO intake was minimal, likely around 30 oz of fluids daily. Last night while she was eating dinner, she felt like she was going to pass out: dizzy, clammy and nauseous. Today, patient denies feeling dizzy and has had no bowel movements but continues to feel weak. Patient states she is urinating in normal amounts. I offered to bring the patient into the clinic for evaluation and possible IV fluids but the patient states she is at work today and unable to come to the clinic. I encouraged the patient to push fluids, add Gatorade and to seek immediate attention in the ER if she experiences the sensation that she is going to pass out again. BCN will check in with patient again tomorrow. Patient was encouraged to call with questions or concerns
--- NOTE | 2022-03-20 09:49 | ONC.NURNOTE ---
Call to patient for an update on her condition. Patient sounds stronger today and states she is feeling better today. She is pushing fluids and states eating is becoming easier. Patient will come to clinic tomorrow for consideration of Taxol #5.
[2022-03-21 08:31] VITALS: BP 110/78; PULSE 92; RESP 16; TEMP 37.2; O2SAT 96
[2022-03-21 08:42] LABS: Basophils Percent Auto 2.1 % (0.0-3.0); Eosinophils Percent Auto 3.8 % (0.0-7.0); Hematocrit 25.5 % (33.0-51.0); Hemoglobin* 8.7 gm/dL (12.0-16.0); Immature Granulocytes Pct Auto 0.7 %; Lymphocytes Percent Auto 17.6 % (20-44); Mean Corpuscular HGB Conc 34 gm/dL (32-36); Mean Corpuscular Hemoglobin 34 pg (26-34); Mean Corpuscular Volume 100 fL (80-100); Monocytes Percent Auto 11.4 % (0.0-11.0); Neutrophils Percent Auto 64.4 % (42.0-72.0); Platelet Count* 195 K/uL (140-440); Red Blood Count 2.56 m/uL (4.00-5.20)
[2022-03-21 08:46] LABS: Slide Review Reflex No
[2022-03-21 08:56] LABS: Albumin* 3.8 g/dL (3.3-5.0); Chloride* 105 mmol/L (96-114); Sodium* 138 mmol/L (135-149)
[2022-03-21 08:57] LABS: Potassium* 3.7 mmol/L (3.6-5.1)
[2022-03-21 08:59] LABS: Alanine Aminotransferase* 31 U/L (4-35); Alkaline Phosphatase* 66 U/L (40-150); Aspartate Amino Transferase* 41 U/L (12-35); Bilirubin Total* 0.8 mg/dL (0.1-1.5); Blood Urea Nitrogen* 10 mg/dL (7-30); Carbon Dioxide* 26 mmol/L (20-32); Creatinine* 0.7 mg/dL (0.5-1.5); Est. Creatinine Clearance* 162.59; Estimated Glomerular Filt Rate 103 ml/min; Glucose* 108 mg/dL (60-115); Total Protein* 6.3 g/dL (6.0-8.3)
[2022-03-21] MEDS: PALONOSETRON 0.25 MG/5 ML inj IVP (10:00)
[2022-03-21] MEDS: dexAMETHasone 20 MG in 0.9 % SODIUM CHLORIDE 100 ml 100 ML 408 MG IVPB (10:00)
[2022-03-21] MEDS: FAMOTIDINE 20 MG, diphenhydrAMINE 25 MG in 0.9 % SODIUM CHLORIDE 100 ml 100 ML 309 MG IVPB (10:26)
[2022-03-21 10:54] LABS: Magnesium* 1.8 mg/dL (1.5-2.6)
[2022-03-21] MEDS: PACLITAXEL IV (10:56)
[2022-03-21] MEDS: IN LINE IV (10:56)
[2022-03-21] MEDS: [UNRECOGNIZED DRUG - OTHER] IV (10:56)
[2022-03-21] MEDS: MICRON FILTER SET IV (10:56)
[2022-03-21] MEDS: TUBING PRIMARY IV (10:56)
[2022-03-21] MEDS: HEPARIN 500 UNIT/5 ML SYRINGE IVF (12:02)
[2022-03-21] MEDS: SODIUM CHLORIDE 0.9 % (FLUSH) 10 ML SYRINGE IVF (12:02)
[2022-03-28 08:35] LABS: Basophils Percent Auto 1.5 % (0.0-3.0); Eosinophils Percent Auto 2.9 % (0.0-7.0); Hematocrit 25.9 % (33.0-51.0); Hemoglobin* 8.7 gm/dL (12.0-16.0); Immature Granulocytes Pct Auto 1.5 %; Lymphocytes Percent Auto 22.9 % (20-44); Mean Corpuscular HGB Conc 34 gm/dL (32-36); Mean Corpuscular Hemoglobin 34 pg (26-34); Mean Corpuscular Volume 101 fL (80-100); Monocytes Percent Auto 12.4 % (0.0-11.0); Neutrophils Percent Auto 58.8 % (42.0-72.0); Platelet Count* 216 K/uL (140-440); Red Blood Count 2.56 m/uL (4.00-5.20); White Blood Count* 2.75 K/uL (4.50-11.00)
[2022-03-28 08:38] LABS: Slide Review Reflex No
[2022-03-28 08:41] VITALS: BP 103/73; PULSE 91; RESP 16; TEMP 36.4; O2SAT 97
[2022-03-28 08:46] LABS: Albumin* 3.8 g/dL (3.3-5.0); Chloride* 108 mmol/L (96-114); Potassium* 3.5 mmol/L (3.6-5.1); Sodium* 138 mmol/L (135-149)
[2022-03-28 08:48] LABS: Creatinine* 0.7 mg/dL (0.5-1.5); Est. Creatinine Clearance* 162.32; Estimated Glomerular Filt Rate 103 ml/min
[2022-03-28 08:49] LABS: Alanine Aminotransferase* 33 U/L (4-35); Alkaline Phosphatase* 60 U/L (40-150); Aspartate Amino Transferase* 37 U/L (12-35); Bilirubin Total* 0.7 mg/dL (0.1-1.5); Blood Urea Nitrogen* 13 mg/dL (7-30); Carbon Dioxide* 25 mmol/L (20-32); Glucose* 105 mg/dL (60-115); Total Protein* 6.2 g/dL (6.0-8.3)
[2022-03-28 08:50] VITALS: BP 103/73; PULSE 91; RESP 16; TEMP 36.4; O2SAT 97
[2022-03-28 08:50] LABS: Calcium* 8.9 mg/dL (8.4-10.6)
[2022-03-28] MEDS: dexAMETHasone 20 MG in 0.9 % SODIUM CHLORIDE 100 ml 100 ML 408 MG IVPB (09:31)
[2022-03-28] MEDS: PALONOSETRON 0.25 MG/5 ML inj IVP (09:31)
[2022-03-28] MEDS: 0.9 % SODIUM CHLORIDE 250 ml IV (09:31)
[2022-03-28] MEDS: FAMOTIDINE 20 MG, diphenhydrAMINE 25 MG in 0.9 % SODIUM CHLORIDE 100 ml 100 ML 309 MG IVPB (09:51)
[2022-03-28] MEDS: IN LINE IV (10:24)
[2022-03-28] MEDS: [UNRECOGNIZED DRUG - OTHER] IV (10:24)
[2022-03-28] MEDS: MICRON FILTER SET IV (10:24)
[2022-03-28] MEDS: TUBING PRIMARY IV (10:24)
[2022-03-28] MEDS: PACLITAXEL IV (10:24)
[2022-03-28] MEDS: HEPARIN 500 UNIT/5 ML SYRINGE IVF (11:48)
[2022-03-28] MEDS: SODIUM CHLORIDE 0.9 % (FLUSH) 10 ML SYRINGE IVF (11:48)
[2022-04-04 09:33] LABS: Basophils Percent Auto 2.1 % (0.0-3.0); Eosinophils Percent Auto 2.5 % (0.0-7.0); Hematocrit 26.2 % (33.0-51.0); Hemoglobin* 8.6 gm/dL (12.0-16.0); Immature Granulocytes Pct Auto 1.7 %; Lymphocytes Percent Auto 27.3 % (20-44); Mean Corpuscular HGB Conc 33 gm/dL (32-36); Mean Corpuscular Hemoglobin 34 pg (26-34); Mean Corpuscular Volume 104 fL (80-100); Monocytes Percent Auto 10.1 % (0.0-11.0); Neutrophils Percent Auto 56.3 % (42.0-72.0); Platelet Count* 219 K/uL (140-440); RDW Coefficient of Variation % 16.6 % (11.5-15.5); Red Blood Count 2.52 m/uL (4.00-5.20); White Blood Count* 2.38 K/uL (4.50-11.00)
[2022-04-04 09:47] LABS: Slide Review Reflex No
[2022-04-04 09:58] LABS: Albumin* 3.7 g/dL (3.3-5.0); Chloride* 110 mmol/L (96-114)
[2022-04-04 09:59] LABS: Potassium* 3.5 mmol/L (3.6-5.1); Sodium* 138 mmol/L (135-149)
[2022-04-04 10:01] LABS: Alkaline Phosphatase* 62 U/L (40-150); Aspartate Amino Transferase* 36 U/L (12-35); Bilirubin Total* 0.6 mg/dL (0.1-1.5); Blood Urea Nitrogen* 14 mg/dL (7-30); Carbon Dioxide* 23 mmol/L (20-32); Creatinine* 0.7 mg/dL (0.5-1.5); Est. Creatinine Clearance* 162.32; Estimated Glomerular Filt Rate 103 ml/min; Total Protein* 6.1 g/dL (6.0-8.3)
[2022-04-04 10:02] LABS: Alanine Aminotransferase* 35 U/L (4-35); Calcium* 9.1 mg/dL (8.4-10.6); Glucose* 123 mg/dL (60-115)
[2022-04-04] MEDS: PALONOSETRON 0.25 MG/5 ML inj IVP (10:43)
[2022-04-04] MEDS: dexAMETHasone 20 MG in 0.9 % SODIUM CHLORIDE 100 ml 100 ML 408 MG IVPB (10:43)
[2022-04-04] MEDS: FAMOTIDINE 20 MG, diphenhydrAMINE 25 MG in 0.9 % SODIUM CHLORIDE 100 ml 100 ML 309 MG IVPB (11:04)
[2022-04-04] MEDS: TUBING PRIMARY IV (11:35)
[2022-04-04] MEDS: PACLITAXEL IV (11:35)
[2022-04-04] MEDS: [UNRECOGNIZED DRUG - OTHER] IV (11:35)
[2022-04-04] MEDS: MICRON FILTER SET IV (11:35)
[2022-04-04] MEDS: IN LINE IV (11:35)
[2022-04-04] MEDS: HEPARIN 500 UNIT/5 ML SYRINGE IVF (13:01)
[2022-04-04] MEDS: SODIUM CHLORIDE 0.9 % (FLUSH) 10 ML SYRINGE IVF (13:01)
[2022-04-11 10:07] VITALS: BP 128/79; PULSE 85; RESP 18; TEMP 36.7; O2SAT 97
[2022-04-11] MEDS: ALTEPLASE 2 MG INJ IVF (10:31)
[2022-04-11 10:32] LABS: Basophils Percent Auto 1.9 % (0.0-3.0); Eosinophils Percent Auto 2.4 % (0.0-7.0); Hematocrit 27.3 % (33.0-51.0); Lymphocytes Percent Auto 28.5 % (20-44); Mean Corpuscular HGB Conc 33 gm/dL (32-36); Mean Corpuscular Hemoglobin 34 pg (26-34); Mean Corpuscular Volume 104 fL (80-100); Monocytes Percent Auto 12.6 % (0.0-11.0); Neutrophils Percent Auto 53.6 % (42.0-72.0); Platelet Count* 235 K/uL (140-440); RDW Coefficient of Variation % 16.2 % (11.5-15.5); Red Blood Count 2.62 m/uL (4.00-5.20); White Blood Count* 2.07 K/uL (4.50-11.00)
[2022-04-11 10:39] LABS: Slide Review Reflex No
[2022-04-11 11:31] LABS: Albumin* 3.7 g/dL (3.3-5.0); Chloride* 108 mmol/L (96-114); Sodium* 138 mmol/L (135-149)
[2022-04-11 11:32] LABS: Potassium* 4.4 mmol/L (3.6-5.1)
[2022-04-11 11:33] LABS: Creatinine* 0.6 mg/dL (0.5-1.5); Est. Creatinine Clearance* 193.44; Estimated Glomerular Filt Rate 107 ml/min
[2022-04-11 11:34] LABS: Alanine Aminotransferase* 38 U/L (4-35); Alkaline Phosphatase* 60 U/L (40-150); Aspartate Amino Transferase* 39 U/L (12-35); Bilirubin Total* 0.6 mg/dL (0.1-1.5); Blood Urea Nitrogen* 13 mg/dL (7-30); Carbon Dioxide* 27 mmol/L (20-32); Glucose* 111 mg/dL (60-115); Total Protein* 6.2 g/dL (6.0-8.3)
[2022-04-11 11:35] LABS: Calcium* 9.1 mg/dL (8.4-10.6)
[2022-04-11] MEDS: dexAMETHasone 20 MG in 0.9 % SODIUM CHLORIDE 100 ml 100 ML 408 MG IVPB (12:00)
[2022-04-11] MEDS: PALONOSETRON 0.25 MG/5 ML inj IVP (12:01)
[2022-04-11] MEDS: FAMOTIDINE 20 MG, diphenhydrAMINE 25 MG in 0.9 % SODIUM CHLORIDE 100 ml 100 ML 309 MG IVPB (12:20)
[2022-04-11] MEDS: MICRON FILTER SET IV (12:46)
[2022-04-11] MEDS: PACLITAXEL IV (12:46)
[2022-04-11] MEDS: TUBING PRIMARY IV (12:46)
[2022-04-11] MEDS: IN LINE IV (12:46)
[2022-04-11] MEDS: [UNRECOGNIZED DRUG - OTHER] IV (12:46)
[2022-04-11] MEDS: SODIUM CHLORIDE 0.9 % (FLUSH) 10 ML SYRINGE IVF (14:12)
[2022-04-11] MEDS: HEPARIN 500 UNIT/5 ML SYRINGE IVF (14:12)
[2022-04-18 10:14] LABS: Basophils Percent Auto 1.8 % (0.0-3.0); Eosinophils Percent Auto 2.2 % (0.0-7.0); Hematocrit 27.9 % (33.0-51.0); Hemoglobin* 9.2 gm/dL (12.0-16.0); Immature Granulocytes Pct Auto 0.9 %; Lymphocytes Percent Auto 27.6 % (20-44); Mean Corpuscular HGB Conc 33 gm/dL (32-36); Mean Corpuscular Hemoglobin 34 pg (26-34); Mean Corpuscular Volume 103 fL (80-100); Monocytes Percent Auto 11.1 % (0.0-11.0); Neutrophils Percent Auto 56.4 % (42.0-72.0); Platelet Count* 243 K/uL (140-440); RDW Coefficient of Variation % 15.6 % (11.5-15.5); Red Blood Count 2.72 m/uL (4.00-5.20); White Blood Count* 2.25 K/uL (4.50-11.00)
[2022-04-18 10:16] LABS: Slide Review Reflex No
[2022-04-18 10:28] LABS: Albumin* 3.8 g/dL (3.3-5.0); Chloride* 107 mmol/L (96-114)
[2022-04-18 10:29] LABS: Potassium* 3.9 mmol/L (3.6-5.1); Sodium* 138 mmol/L (135-149)
[2022-04-18 10:31] LABS: Aspartate Amino Transferase* 42 U/L (12-35); Bilirubin Total* 0.7 mg/dL (0.1-1.5); Carbon Dioxide* 26 mmol/L (20-32); Creatinine* 0.6 mg/dL (0.5-1.5); Est. Creatinine Clearance* 193.44; Estimated Glomerular Filt Rate 107 ml/min
[2022-04-18 10:32] LABS: Alanine Aminotransferase* 44 U/L (4-35); Alkaline Phosphatase* 63 U/L (40-150); Blood Urea Nitrogen* 14 mg/dL (7-30); Glucose* 99 mg/dL (60-115); Total Protein* 6.3 g/dL (6.0-8.3)
[2022-04-18 10:39] VITALS: BP 114/77; PULSE 84; RESP 14; TEMP 36.8; O2SAT 99
[2022-04-18] MEDS: PALONOSETRON 0.25 MG/5 ML inj IVP (11:02)
[2022-04-18] MEDS: 0.9 % SODIUM CHLORIDE 250 ml IV (11:02)
[2022-04-18] MEDS: dexAMETHasone 20 MG in 0.9 % SODIUM CHLORIDE 100 ml 100 ML 408 MG IVPB (11:02)
[2022-04-18] MEDS: HEPARIN 500 UNIT/5 ML SYRINGE IVF (11:03)
[2022-04-18] MEDS: SODIUM CHLORIDE 0.9 % (FLUSH) 10 ML SYRINGE IVF (11:03)
[2022-04-18] MEDS: FAMOTIDINE 20 MG, diphenhydrAMINE 25 MG in 0.9 % SODIUM CHLORIDE 100 ml 100 ML 307.5 MG IVPB (11:25)
[2022-04-18] MEDS: PACLITAXEL IV (11:46)
[2022-04-18] MEDS: [UNRECOGNIZED DRUG - OTHER] IV (11:46)
[2022-04-18] MEDS: IN LINE IV (11:46)
[2022-04-18] MEDS: MICRON FILTER SET IV (11:46)
[2022-04-18] MEDS: TUBING PRIMARY IV (11:46)
--- NOTE | 2022-04-24 08:53 | ONC.NURNOTE ---
Patient had left a message for BCN yesterday late afternoon. Returned call to patient this morning to discuss her concerns about a possible UTI. Patient states her symptoms started a few days ago. She explains that she has a history of UTI and her primary symptom is always incontinence/urgency. She states I just can't get to the bathroom fast enough. She states it is happening so frequently that she wasn't able to work today. Denies fever, chills or dysuria. Concerns reviewed with Jessenia Mustafa and orders placed for UA and culture. Patient will come to clinic today and we will evaluate for need of an antibiotic. Patient verbalizes understanding of plan.
[2022-04-24 09:53] LABS: Appearance Urine Clear (Clear); Bilirubin Urine Negative (Negative); Blood Urine 2+ (Negative); Color Urine Yellow (Yellow); Glucose Urine Negative (Negative); Ketones Urine Negative (Negative); Leukocyte Esterase Urine Negative (Negative); Nitrite Urine Negative (Negative); Protein Urine 3+ (Negative); Specific Gravity Urine >= 1.030 (1.000-1.030)
[2022-04-24 10:00] VITALS: BP 128/87; PULSE 96; RESP 16; TEMP 36.1; O2SAT 98
[2022-04-24 10:08] LABS: Basophils Percent Auto 1.9 % (0.0-3.0); Eosinophils Percent Auto 2.4 % (0.0-7.0); Hematocrit 26.7 % (33.0-51.0); Hemoglobin* 8.9 gm/dL (12.0-16.0); Immature Granulocytes Pct Auto 0.5 %; Lymphocytes Percent Auto 23.2 % (20-44); Mean Corpuscular HGB Conc 33 gm/dL (32-36); Mean Corpuscular Hemoglobin 34 pg (26-34); Mean Corpuscular Volume 102 fL (80-100); Monocytes Percent Auto 8.2 % (0.0-11.0); Neutrophils Percent Auto 63.8 % (42.0-72.0); Platelet Count* 213 K/uL (140-440); RDW Coefficient of Variation % 15.4 % (11.5-15.5); Red Blood Count 2.62 m/uL (4.00-5.20); White Blood Count* 2.07 K/uL (4.50-11.00)
[2022-04-24 10:14] LABS: Slide Review Reflex No
[2022-04-24 10:15] LABS: Bacteria Urine Moderate; Squamous Epithelial Cell Urine Few (None-Few)
[2022-04-24 10:33] LABS: Albumin* 3.8 g/dL (3.3-5.0); Chloride* 105 mmol/L (96-114); Potassium* 3.6 mmol/L (3.6-5.1); Sodium* 137 mmol/L (135-149)
[2022-04-24 10:36] LABS: Alanine Aminotransferase* 39 U/L (4-35); Alkaline Phosphatase* 59 U/L (40-150); Aspartate Amino Transferase* 40 U/L (12-35); Bilirubin Total* 0.8 mg/dL (0.1-1.5); Blood Urea Nitrogen* 10 mg/dL (7-30); Carbon Dioxide* 27 mmol/L (20-32); Creatinine* 0.6 mg/dL (0.5-1.5); Est. Creatinine Clearance* 185.82; Estimated Glomerular Filt Rate 107 ml/min; Glucose* 114 mg/dL (60-115)
[2022-04-24 10:37] LABS: Calcium* 8.9 mg/dL (8.4-10.6)
--- NOTE | 2022-04-24 12:47 | ONC.NURNOTE ---
UTI teaching and writtten info given. pt seen by Jessenia PRATT. rx called in for Lo DS. pt to cancel treatment tomorrow if not feeling better. Home with port accessed.
[2022-04-24] MEDS: SODIUM CHLORIDE 0.9 % (FLUSH) 10 ML SYRINGE IVF (12:50)
[2022-04-24] MEDS: HEPARIN 500 UNIT/5 ML SYRINGE IVF (12:50)
[2022-04-25] MEDS: PALONOSETRON 0.25 MG/5 ML inj IVP (10:01)
[2022-04-25] MEDS: dexAMETHasone 20 MG in 0.9 % SODIUM CHLORIDE 100 ml 100 ML 408 MG IVPB (10:05)
[2022-04-25 10:12] VITALS: BP 112/82; PULSE 97; RESP 18; TEMP 37.3; O2SAT 96
[2022-04-25] MEDS: FAMOTIDINE 20 MG, diphenhydrAMINE 25 MG in 0.9 % SODIUM CHLORIDE 100 ml 100 ML 309 MG IVPB (10:22)
[2022-04-25] MEDS: [UNRECOGNIZED DRUG - OTHER] IV (10:47)
[2022-04-25] MEDS: MICRON FILTER SET IV (10:47)
[2022-04-25] MEDS: IN LINE IV (10:47)
[2022-04-25] MEDS: PACLITAXEL IV (10:47)
[2022-04-25] MEDS: TUBING PRIMARY IV (10:47)
[2022-04-25] MEDS: SODIUM CHLORIDE 0.9 % (FLUSH) 10 ML SYRINGE IVF (12:27)
[2022-04-25] MEDS: HEPARIN 500 UNIT/5 ML SYRINGE IVF (12:27)
[2022-04-25] MEDS: 0.9 % SODIUM CHLORIDE 250 ml IV (12:27)
[2022-05-02 09:31] LABS: Basophils Percent Auto 2.2 % (0.0-3.0); Eosinophils Percent Auto 2.2 % (0.0-7.0); Hematocrit 26.9 % (33.0-51.0); Immature Granulocytes Pct Auto 1.6 %; Lymphocytes Percent Auto 38.2 % (20-44); Mean Corpuscular HGB Conc 34 gm/dL (32-36); Mean Corpuscular Hemoglobin 34 pg (26-34); Mean Corpuscular Volume 102 fL (80-100); Monocytes Percent Auto 11.8 % (0.0-11.0); Platelet Count* 244 K/uL (140-440); RDW Coefficient of Variation % 15.3 % (11.5-15.5); Red Blood Count 2.63 m/uL (4.00-5.20)
[2022-05-02 09:45] LABS: Albumin* 3.7 g/dL (3.3-5.0); Chloride* 106 mmol/L (96-114)
[2022-05-02 09:46] LABS: Potassium* 3.9 mmol/L (3.6-5.1); Sodium* 137 mmol/L (135-149)
[2022-05-02 09:48] LABS: Alkaline Phosphatase* 64 U/L (40-150); Aspartate Amino Transferase* 46 U/L (12-35); Bilirubin Total* 0.7 mg/dL (0.1-1.5); Blood Urea Nitrogen* 15 mg/dL (7-30); Carbon Dioxide* 27 mmol/L (20-32); Creatinine* 0.7 mg/dL (0.5-1.5); Estimated Glomerular Filt Rate 103 ml/min; Total Protein* 6.1 g/dL (6.0-8.3)
[2022-05-02 09:49] LABS: Alanine Aminotransferase* 48 U/L (4-35); Calcium* 8.8 mg/dL (8.4-10.6); Glucose* 98 mg/dL (60-115)
[2022-05-02 09:52] LABS: Slide Review Reflex No; White Blood Count* 1.86 K/uL (4.50-11.00)
[2022-05-16 13:58] LABS: Appearance Urine Clear (Clear); Bilirubin Urine Negative (Negative); Blood Urine Negative (Negative); Color Urine Yellow (Yellow); Glucose Urine Negative (Negative); Ketones Urine Negative (Negative); Leukocyte Esterase Urine Negative (Negative); Nitrite Urine Negative (Negative); Protein Urine Negative (Negative)
[2022-05-16 14:21] LABS: RBC Urine 0-2 (0-2)
[2022-05-16 14:22] LABS: WBC Urine 0-2 (0-5)
--- NOTE | 2022-05-16 16:35 | ONC.NURNOTE ---
Reviewed normal UA results with pt via phone.
== END 2022-06-11 23:59 | disposition home or self-care (01) ==
LOC: CCIC 13:30
PROVIDERS: Clinical Nurse Specialist; Internal Medicine Hematology & Oncology; PCP Family Medicine; Referring Provider Family Medicine; Visit Provider Nurse Practitioner Family
DX: C50.912 Malignant neoplasm of unspecified site of left female breast (principal); Z17.0 Estrogen receptor positive status [ER+]; R39.15 Urgency of urination
CPT/HCPCS: 36415; 36591; 80053; 81001; 81003; 81015; 83735; 85025; 87086; 96376; 96409; 96411; 96413; 96417; 99202; 99205; 99211; 99212; 99213; 99214; 99215; J9000; J9070; J1100; J1200; J1453; J1642; J2250; J2405; J2469; J2704; J2997; J3010; J7050; J9267; S0028

== ENCOUNTER 2022-07-09 07:20 | Inpatient (IN) | payer BC, SELFPAY ==
[2022-07-09] VITALS (22 sets, daily range): BP systolic 72–145; BP diastolic 48–90; PULSE 40–78; RESP 12–20; TEMP 35.7–37.5; O2SAT 93–99; BMI 46.6
[2022-07-09] MEDS: SCOPOLAMINE 1 MG/3 DAY PATCH 1 PATCH TRANSDERMA (07:33)
[2022-07-09] MEDS: LACTATED RINGERS 1000 ML 1,000 ML 100 ML IV ×2 (07:35→20:06)
[2022-07-09 08:21] LABS: Creatinine* 0.7 mg/dL (0.5-1.5); Estimated Glomerular Filt Rate 103 ml/min
--- NOTE | 2022-07-09 08:45 | CRLHL7_ITS ---
For Patients: As a result of the Century Cures Act, medical imaging exams and procedure reports are released immediately into your electronic medical record. You may view this report before your referring provider. If you have questions, please contact your health care provider. HISTORY: 52-year-old female. Left breast cancer. TECHNIQUE: 0.75 millicuries of [id number] sulfur colloid was injected in the left breast for sentinel lymph node localization. Images were not obtained. Dictated by Asfa Meraz MD @ 07/09/2022 9:00:39 AM (Electronically Signed)
--- NOTE | 2022-07-09 09:18 | W.ANESCHARGE ---
Anesthesia Charges Start Date/Time Anesthesia Start Date: 07/09/22 Anesthesia Start Time: 09:22 Stop Date/Time Anesthesia Stop Date: 07/09/22 Anesthesia Stop Time: 16:18
--- NOTE | 2022-07-09 09:41 | W.PM.NB ---
Nerve Block Nerve Block Time Seen by Provider: 09:38 Date Seen: 07/09/22 Type of block requested by surgeon for post-operative analgesia: intercostal Side: bilateral Time out performed: Yes Verification of patient name: Yes Verification of date of : Yes Site marking: site marked Name of person performing procedure: Vviek Continuous monitoring Was continuous monitoring of O2 sat, B/P, monitor tech, recorded every 15 minutes?: Yes Procedure Checklist: sterile prep, needles and gloves Ultrasound guided. Images saved: Yes Medications given in 5ml increments after negative aspiration: Marcaine %: 0.25 mL: 30 and Exparel mL: 10 Needle gauge: 20 Patient tolerated procedure well: Yes Block Charges Block Charge (with Pro Fee): Intercostal Nerve Block Use of Ultrasound Machine for Block: Yes- US Guidance/pain block
[2022-07-09] MEDS: ISOSULFAN BLUE 5 ML VIAL INJECTION (09:44)
[2022-07-09] MEDS: CEFAZOLIN 1 GM inj 3 GM IVP ×2 (09:50)
[2022-07-09 10:40] LABS: Hemoglobin* 14.7 gm/dL (12.0-16.0)
[2022-07-09] MEDS: BUPIVACAINE 0.25% 30 ML INJECTION (13:50)
--- NOTE | 2022-07-09 13:51 | P.GSOP_ITS ---
Operative Note Date of procedure: 07/09/22 Pre-op diagnosis: 1. Left breast invasive ductal carcinoma, triple negative, s/p neoadjuvant chemotherapy. 2. Positive BRCA2 mutation. Post-op diagnosis: Same Type of Procedure: 1. Right prophylactic mastectomy. 2. Left therapeutic mastectomy. 3. Left sentinel lymph node biopsy. Indications: 52-year-old female was initially seen in clinic in November of 2021 with a newly diagnosed grade 3 invasive ductal carcinoma of the left breast at 9:00 6 cm from the nipple. The tumor was measuring 1.3 x 2.9 cm and was 11% ER positive, IA and HER2 negative with Ki 67 of 60%. Patient did not have any clinically palpable axillary lymph nodes. Patient's tumor was treated as triple negative tumor and neoadjuvant chemotherapy was recommended. Patient completed neoadjuvant chemotherapy. In the meantime she underwent genetic testing and was tested positive for BRCA2 mutation. Given patient's left breast cancer juhi gnosis and her BRCA positive mutation, patient desired to proceed with bilateral mastectomy and left sentinel lymph node biopsy. Patient was also seen by [facility] and total hysterectomy with bilateral salpingo-oophorectomy was recommended. Please see their note for more details. I discussed the procedure of bilateral mastectomy with left sentinel lymph node biopsy with the patient. The risks associated procedure including infection, bleeding, seroma, the need for additional procedures, and the possible need for axillary node dissection were all discussed with the patient, and she agreed to proceed. Procedure Description: After discussing the risks and benefits of the procedure, the patient signed informed consent.? The operative site was marked and the patient was brought to the operating room and placed on the operating table in supine position.? Care was taken to pad the patient's pressure points.?? The patient was then intubated by anesthesia.? Bilateral PEC blocks were administered by Anesthesia. The operative site was then prepped and draped in the usual sterile fashion.? A time-out was then performed. I first proceeded with the right prophylactic?mastectomy. An Elliott wing elliptical skin incision was made around the nipple-areolar complex using a scalpel extending into the lateral flank.? Dermis was divided with cautery.? Rakes and Roman retractors were used for retraction throughout the case.? Skin flaps were developed circumferentially in a relatively avascular placed between subcutaneous fat and breast tissue using manual traction between the skin flaps and breast tissue.? Dissection was performed to just below the clavicle superiorly, to the lateral border of pectoralis major muscle laterally, to the sternal border medially, and to the inframammary fold inferiorly.? This was all done with cautery.? Hemostasis throughout the case was achieved with cautery and Vicryl ties. Subcutaneous fat just lateral to the breast tissue was excised with cautery and included in the specimen. ? When the breast tissue was dissected circumferentially, it was then removed in a medial to lateral fashion from Pectoralis using electrocautery. The pectoralis major fascia was included with the specimen. The specimen was labeled for orientation with a single stitch at 12:00 and sent to pathology for margins.? Mastectomy cavity was irrigated with normal saline.? Hemostasis was achieved with cautery.? A 15F Nicholas drain was placed inferior and lateral to the breast through a small stab incision and secured in place with nylon suture. The edges of surgical incision were re-approximated using interrupted 2-0 and 3-0 Vicryl sutures.? The skin was closed with a running subcuticular 4-0 Monocryl stitch. We then proceeded with the therapeutic left mastectomy. An Elliott wing elliptical skin incision was made around the nipple-areolar complex using a scalpel extending into the lateral flank.? Dermis was divided with cautery.? Rakes and Roman retractors were used for retraction throughout the case.? Skin flaps were developed circumferentially in a relatively avascular placed between subcutaneous fat and breast tissue using manual traction between the skin flaps and breast tissue.? Dissection was performed to just below the clavicle superiorly, to the lateral border of pectoralis major muscle laterally, to the sternal border medially, and to the inframammary fold inferiorly.? This was all done with cautery.? Hemostasis throughout the case was achieved with cautery and Vicryl ties. Subcutaneous fat just lateral to the breast tissue was excised with cautery and included in the specimen. ? When the breast tissue was dissected circumferentially, I proceeded with left sentinel lymph node biopsy. Four ml (milliliters) of Lymphazurin blue was personally injected by me near the left nipple for sentinel lymph node identification. This was done prior to starting with the right mastectomy. A Signifyd counter was brought onto the field in the left axilla through the mastectomy incision. A green lymph node was identified and appeared to have radioactive signal. This was excised with cautery. This was sent to pathology as the sentinel node #1. Axillary miguel tissue was examined again with the Cristy counter and and no additional significant signal was identified. Hemostasis was achieved with cautery. Pathology did frozen section on this lymph node, and no tumor was identified in the lymph node. We then proceeded with removing the left breast off pectoralis fascia using electrocautery. The pectoralis major fascia was included with the specimen. The specimen was labeled for orientation with a single stitch at 12:00 and sent to pathology for margins.? Pathology was not able to identify the tumor in the specimen, and this was thought to be due to great response from neoadjuvant chemotherapy. Left Mastectomy cavity was irrigated with normal saline.? Hemostasis was achieved with cautery.? A 15F Nicholas drain was placed inferior and lateral to the breast through a small stab incision and secured in place with nylon suture. The edges of surgical incision were re-approximated using interrupted 2-0 and 3-0 Vicryl sutures.? The skin was closed with a running subcuticular 4-0 Monocryl stitch. Steri strips and sterile fluffs were applied over bilateral incisions.? Bilateral drain sponges were placed under the drains. The dressings were secured in place with tape.? All counts were correct at the end of my portion of the case. At this time all drapes were removed, patient was repositioned for upcoming hysterectomy with bilateral salpingo-oophorectomy was Dr. Amos Kay from [facility]. I left the operating room. Findings: Preliminary pathology report found no masses in the right breast, no tumor was identified in the left breast indicating great response from neoadjuvant chemotherapy, a single sentinel lymph node was removed and was negative for cancer. Anesthesia: GETA Surgeon: Chiara Sainz MD Estimated blood loss (mL): 75 Additional Specimen Information: 1. Right mastectomy. 2. Left sentinel lymph node biopsy. 3. Left mastectomy. Condition: stable
--- NOTE | 2022-07-09 13:56 | P.NB_ITS ---
Nerve Block Nerve Block Time Seen by Provider: 13:22 Date Seen: 07/09/22 Type of block requested by surgeon for post-operative analgesia: TAP Side: bilateral Time out performed: Yes Verification of patient name: Yes Verification of date of : Yes Site marking: site marked Name of person performing procedure: Vivek Continuous monitoring Was continuous monitoring of O2 sat, B/P, school lunch monitor, recorded every 15 minutes?: Yes Procedure Checklist: sterile prep, needles and gloves Ultrasound guided. Images saved: Yes Medications given in 5ml increments after negative aspiration: Marcaine %: 0.25 mL: 20 Needle gauge: 20 and Exparel mL: 10 Patient tolerated procedure well: Yes Additional comments: Needle noted adjacent to nerve Block Charges Block Charge (with Pro Fee): TAP Bilateral Use of Ultrasound Machine for Block: Yes- US Guidance/pain block
--- NOTE | 2022-07-09 15:43 | P.GYNPRC_ITS ---
Procedure Note Date Seen: 07/09/22 Procedure Details: PREOPERATIVE DIAGNOSIS: BRCA2 positive. History of section. POSTOPERATIVE DIAGNOSIS: BRCA2 positive. History of section. PROCEDURE: Risk-reducing total laparoscopic hysterectomy with bilateral salpingo-oophoretomies. Diagnostic cystoscopy. SURGEON: Alexandra. [employer] ARCHITECT: Coleen. ANESTHESIA: General endotracheal. COMPLICATIONS: None. ESTIMATED BLOOD LOSS: See operative report by Dr. Morris. FINDINGS: Pelvic adhesions involving the bladder and lower uterine segment as well as the sigmoid colon and left pelvic sidewall, left ovary and uterine serosa. Otherwise normal-appearing uterus, fallopian tubes, and ovaries bilaterally. PROCEDURE NOTE: Please see the operative report by Dr. Morris for full details of the procedure. I was asked to assist. I was scrubbed in for the entire procedure until closure of the abdominal incisions. I provided assistance with laparoscopic port placement, lysis of adhesions, visualization and retraction, and with the hysterectomy and bilateral salping0-oophorectomies from the right side, as well as with hemostasis and closure of the vaginal cuff.
--- NOTE | 2022-07-09 15:49 | SUR.OPER ---
Additional surgical time-outs in the OR: pectoral blocks prior to bilateral mastectomy @0981, time out for lymphazurin @ 0943, TAP block prior to abdominal procedure @ 1329
--- NOTE | 2022-07-09 16:05 | P.PCN_ITS ---
Procedure Note Time Seen by Provider: 16:05 Date Seen: 07/09/22 Date of procedure: 07/09/22 Will [facility] bill your pro fee for this procedure?: Yes Procedure: Preoperative diagnosis: 52-year-old 2 para 2003 (1 adopted child). * Personal history of breast cancer * BRCA-2 carrier * Desires risk-reducing surgery. Postoperative diagnosis: Same Procedure: Total laparoscopic hysterectomy, lysis of adhesions, bilateral salpingo-oophorectomy, diagnostic cystoscopy. Anesthesia: General endotracheal, local Surgeon: Leelee Morris MD Assist: Breana Horne MD Estimated blood loss: 50 mL. IV Fluid: 1200 mL Urine output: to 75 mL Drains: Caraballo to gravity Specimen: Uterus, bilateral ovaries and fallopian tubes to pathology. Findings: On exam under anesthesia: The uterus was anteverted, approximately 8week size, mobile without nodularity or masses palpable. Adnexa without mass or fullness palpable. On laparoscopy: thin adhesions of the sigmoid colon to the left pelvic sidewall and left adnexa. Normal ovaries and fallopian tubes bilaterally. Combination of thick and thin adhesions of the bladder reflection to the anterior abdominal wall. Appendix and liver edge appeared normal. Procedure: Yessy was in the operating room prior to this procedure for bilateral mastectomy. Please see Dr. Sainz's procedure note for complete details. She was placed in the dorsal lithotomy position and an exam under anesthesia was performed with findings stated above. She was then prepped and draped in a normal sterile manner. A Caraballo catheter was placed. A bivalve speculum was placed in the vaginal canal. A single-toothed tenaculum was placed on the anterior lip of the cervix, in the uterus sounded to 9 cm. A medium VCare uterine manipulator was then placed. The Allis clamp and speculum were removed from the cervix. Attention was then turned to performing the laparoscopic portion of the procedure. All incisions were infiltrated with 0.25% Marcaine prior to incising the skin. A vertical, infraumbilical 1 cm incision was made. An 11 mm trocar was then placed under direct visualization. The abdomen was then insufflated with CO2 gas to a pressure of 15 mm of mercury. Two, pelvic ports were then placed approximately 3-4 finger breaths medial to the ischial crests. The trocar in the RLQ = 5mm, LLQ = 11mm. These were placed under direct visualization. Prior to performing the hysterectomy lysis of adhesions was performed on the left pelvic sidewall and left adnexa to mobilize the descending and sigmoid colon to promote visualization. This dissection was performed using the Power Seal dissecting forceps and mild blunt dissection. Attention was then turned to performing the hysterectomy. Both ureters were visualized in the normal position bilaterally. The left fallopian tube was grasped and removed with sequential pedicles using the dissecting, PowerSeal blunt tip dissecting forceps. The left side of the hysterectomy was performed using the PowerSeal dissecting forceps. The 1st pedicles were made at the infundibulopelvic ligament just inferior to the ovary. These pedicles were then advanced for the patient's cervix through the broad ligament. The broad ligament that was cauterized and and bisected. The ovary and fallopian tube were removed from the cornua and placed in the posterior cul-de-sac. Then sequential pedicles were made through the broad ligament. The left uterine vessels were skeletonized. The bladder was then backfilled with sterile baby formula which allowed for visualization of the edge of the bladder. The adhesions the peritoneum and bladder reflection were then dissected using the PowerSeal dissecting forceps. Once the adhesions were removed the Caraballo was replaced to allow the bladder to drain. The posterior leaf of the broad ligament was then divided and sequential pedicles carried down to the level of the VCare cup. The anterior leaf of the broad ligament was then divided down to the level of the anterior aspect of the VCare cup and a bladder flap created. The uterine vessels were then skeletonized. The uterine vessels were then cauterized and divided. Then excess tissue was cleared over the top of the VCare cup using the dissecting forceps. The right salpingo-oophorectomy and right side of the hysterectomy were then performed in a similar manner. The Ligasure Valleylab pen with the spatula attachment was then used to perform the colpotomy incising around the VCare cup. The uterus was removed and the fundus placed in the vaginal canal to maintain insufflation. The vaginal cuff was then reapproximated using 2-0 V lock suture in a running manner. All the pedicles and vaginal cuff were then closely visualized and hemostasis obtained with bipolar cautery using the PowerSeal dissecting forceps or the [employer] pen with the spatula. the uterus, bilateral ovaries and fallopian tubes were removed from the abdomen through the vaginal canal. The fundus was then replaced in the vaginal canal to maintain insufflation. The vaginal cuff was reapproximated using 2-0 V lock suture in a running manner. The the uterus was removed from the vaginal canal and sent to pathology. The Caraballo catheter was briefly removed. A diagnostic cystoscopy was performed using normal saline as the insufflation medium. The dome of the bladder was noted to be without injury and no evidence of any sutures from the vaginal cuff causing injury. Normal urine flow was noted through both ureteral orifices. Fluorescein IV was used to visualize the urine more easily. The Caraballo catheter was then replaced. Attention was then returned to the abdomen where hemostasis was verified. Asher was applied to the vaginal cuff. The CO2 pressure decreased to 8mmHG and hemostasis verified. The fascia in the LLQ incision was approximated with 0- Vicryl suture using the Sean Self fascial closure device. This was closed under direct visualization with the laparoscope. The fascia in the umbilical incision was reapproximated using 0 Vicryl on a UR 6 needle. All trocars were removed under direct visualization. CO2 gas was allowed to escape the infraumbilical port prior to its removal. All skin incisions were re-appro ximated using 4-0 Monocryl in a running subcuticular manner, Exofin skin adhesive gel and adhesive bandages placed. The patient tolerated this procedure well. Sponge, lap and instrument counts were correct x2 at the end of the procedure and the patient was taken to the recovery area in stable condition. The patient received 2gm IV ancef prior to the start of the this portion of the procedure. She received 3gm IV ancef prior to the mastectomy.
--- NOTE | 2022-07-09 16:50 | W.ANESCHARGE ---
Anesthesia Charges Start Date/Time Anesthesia Start Date: 07/09/22 Anesthesia Start Time: 09:22 Stop Date/Time Anesthesia Stop Date: 07/09/22 Anesthesia Stop Time: 16:18
--- NOTE | 2022-07-09 17:10 | SUR.PHASEI ---
patient met discharge criteria per anesthesia
--- NOTE | 2022-07-09 18:58 | PC.NURSE ---
Addendum entered by Cherrie Rdz RN 07/09/22 19:22: TRISTEN andrade applied at 1720. Started at highest temp setting to maintain patient temperature, titrated to lowest temperature setting now. Original Note: Shift [id number]- Patient arrives from PACU at approximately 1715. She is arousable, but sleepy. Denies pain. Chest is wrapped, [address] Dressing is clean, dry, intact. Lap sites to abdomen are open to air without drainage. Family at bedside and supportive. She is on RA with saturations >90%. Caraballo is patent with clear, teal output.
[2022-07-09] MEDS: OXYCODONE 5 MG TABLET PO (20:05)
[2022-07-10] MEDS: HYDROmorphone 0.5 mg/0.5 ml inj IVP ×2 (00:02→09:53)
[2022-07-10] MEDS: LACTATED RINGERS 1000 ML 1,000 ML 100 ML IV (02:54)
[2022-07-10 03:00] VITALS: BP 105/66; PULSE 73; RESP 16; TEMP 37.1; O2SAT 99
[2022-07-10] MEDS: OXYCODONE 5 MG TABLET PO ×3 (05:46→18:23)
--- NOTE | 2022-07-10 07:31 | P.GSPN_ITS ---
Subjective Subjective Date Seen: 07/10/22 Interval history: Patient is doing okay. She slept on and off last night. She complains of pain in her chest Incisions worse with movement. The worse pain is in the left axilla. She drink 2 cups of water. She did not ambulate. Exam Narrative: Exam Narrative: chest: Bilateral mastectomy incisions were examined after the Aaron was on wrapped. The Aaron was wrapped somewhat tight although patient did not feel too much pressure. The incisions are without hematomas. Bilateral ÁLVARO drains had minimal amount of output since midnight. Dark Bloody drainage is in the bulbs. abdomen: Soft, not distended, minimally tender to palpation on the left side but not tender in the right side. Laparoscopic incisions are covered with glue and no surrounding erythema. Const: Vital Signs, click to edit/add: Vital Signs - 24 hr 07/09/22 08:16 07/09/22 16:15 07/09/22 16:19 Temperature 99.5 F 97.1 F L 97.1 F L Pulse Rate 55 L 44 L 40 L Pulse Rate [Left P ulse Oximeter] Respiratory Rate 16 14 15 Blood Pressure 145/88 H 72/59 L 89/61 L Blood Pressure [Ri ght Arm] Pulse Oximetry 99 97 96 Oxygen Delivery Me thod Room Air OxyMask OxyMask Oxygen Flow Rate 10 10 Fraction of Inspir ed Oxygen 100 40 07/09/22 16:25 07/09/22 16:30 07/09/22 16:35 Temperature 97.1 F L 97.1 F L 97.1 F L Pulse Rate 49 L 55 L 53 L Pulse Rate [Left P ulse Oximeter] Respiratory Rate 20 12 19 Blood Pressure 123/71 117/63 117/63 Blood Pressure [Ri ght Arm] Pulse Oximetry 97 95 95 Oxygen Delivery Me thod OxyMask OxyMask OxyMask Oxygen Flow Rate 10 10 10 Fraction of Inspir ed Oxygen 40 40 40 07/09/22 16:40 07/09/22 16:45 07/09/22 16:50 Temperature 97.1 F L 97.1 F L 97.1 F L Pulse Rate 55 L 53 L 53 L Pulse Rate [Left P ulse Oximeter] Respiratory Rate 14 12 19 Blood Pressure 118/61 106/60 111/62 Blood Pressure [Ri ght Arm] Pulse Oximetry 95 94 95 Oxygen Delivery Me thod OxyMask OxyMask OxyMask Oxygen Flow Rate 10 10 10 Fraction of Inspir ed Oxygen 40 40 40 07/09/22 16:55 07/09/22 17:10 07/09/22 17:15 Temperature 96.4 F L 96.9 F L 96.9 F L Pulse Rate 58 L Pulse Rate [Left P ulse Oximeter] 54 L 54 L Respiratory Rate 16 18 18 Blood Pressure 113/63 Blood Pressure [Ri ght Arm] 128/78 128/78 Pulse Oximetry 95 95 95 Oxygen Delivery Me thod Room Air Room Air Room Air Oxygen Flow Rate 0 Fraction of Inspir ed Oxygen 07/09/22 17:15 07/09/22 17:30 07/09/22 17:45 Temperature 96.9 F L 96.2 F L Pulse Rate 54 L Pulse Rate [Left P ulse Oximeter] 63 56 L Respiratory Rate 18 16 16 Blood Pressure Blood Pressure [Ri ght Arm] 128/78 116/72 123/77 Pulse Oximetry 95 93 Oxygen Delivery Me thod Room Air Room Air Room Air Oxygen Flow Rate Fraction of Inspir ed Oxygen 07/09/22 18:00 07/09/22 18:24 07/09/22 18:30 Temperature 97.3 F L Pulse Rate Pulse Rate [Left P ulse Oximeter] 59 L 60 65 Respiratory Rate 16 16 16 Blood Pressure Blood Pressure [Ri ght Arm] 123/75 124/77 122/80 Pulse Oximetry 94 93 97 Oxygen Delivery Me thod Room Air Room Air Room Air Oxygen Flow Rate Fraction of Inspir ed Oxygen 07/09/22 19:00 07/09/22 20:00 07/09/22 21:00 Temperature 97.6 F 98.5 F Pulse Rate Pulse Rate [Left P ulse Oximeter] 66 78 75 Respiratory Rate 16 16 16 Blood Pressure Blood Pressure [Ri ght Arm] 120/81 100/90 H 109/55 L Pulse Oximetry 97 98 94 Oxygen Delivery Me thod Room Air Room Air Room Air Oxygen Flow Rate 0 0 Fraction of Inspir ed Oxygen 07/09/22 22:00 07/09/22 23:00 07/09/22 23:00 Temperature 97.9 F 98.5 F Pulse Rate Pulse Rate [Left P ulse Oximeter] 60 69 Respiratory Rate 16 16 16 Blood Pressure Blood Pressure [Ri ght Arm] 109/48 L 101/61 Pulse Oximetry 97 97 97 Oxygen Delivery Me thod Room Air Room Air Room Air Oxygen Flow Rate 0 0 0 Fraction of Inspir ed Oxygen 40 07/10/22 03:00 Temperature 98.8 F Pulse Rate Pulse Rate [Left P ulse Oximeter] 73 Respiratory Rate 16 Blood Pressure Blood Pressure [Ri ght Arm] 105/66 Pulse Oximetry 99 Oxygen Delivery Me thod Room Air Oxygen Flow Rate 0 Fraction of Inspir ed Oxygen Progress Note: A&P Assessment and plan (1) Status post total hysterectomy and bilateral salpingo-oophorectomy (BSO): Problem details: TLH/ BSO/AUGUST / diagnostic cystoscopy Status: Acute (2) Status post bilateral mastectomy: Problem details: with sentinel node biopsy Status: Acute Plan 52-year-old female s/p bilateral mastectomy with left sentinel lymph node biopsy and Laparoscopic total hysterectomy with bilateral salpingo- oophorectomy POD 1. Patient is doing well. Will advance her diet as tolerated today. Will take her Caraballo catheter out today. Will work on pain control today. Patient is not ready to go home today.
[2022-07-10 07:56] VITALS: BP 99/62; PULSE 89; RESP 16; TEMP 36.8; O2SAT 96
--- NOTE | 2022-07-10 09:31 | P.GYNPN_ITS ---
COMPENSATION AND BENEFITS MANAGER - A/P Assessment and plan (1) Status post total hysterectomy and bilateral salpingo-oophorectomy (BSO): Problem details: TLH/ BSO/AUGUST / diagnostic cystoscopy Status: Acute (2) Status post bilateral mastectomy: Problem details: with sentinel node biopsy Status: Acute Assessment and Plan: Stable, recovering after surgery on postoperative day 1. Plan 1. Continue routine postop cares. 2. Discussed with patient normal recommendations for postop day 1 after tubing drier surgery, this will also depend on general surgery recommendations, but recommend to proceed with ambulation, removal of Caraballo catheter once urine output is normal. Discussed that goals would be to monitor urination after removal of catheter, passage of gas, pain control and tolerance of a regular diet. 3. We will remain aware of patient, please notify tubing drier team if there is any zenon tional concerns associated to surgery. Postoperative Procedures: Procedures Operation Date: 07/09/22 09:00 Actual Procedure Side Surgeon p Bilateral Mastectomy, Left [place] Lymph Node Biopsy Bilateral Chiara Sainz MD s Total Laparoscopic Hysterectomy, Bilateral Salpingo-Oophorectomy, Diagnostic Cystoscopy, Lysis of Adhesions Bilateral Leelee Morris MD Postoperative day: 1 Postoperative status: doing well Postoperative plan: routine post-op care, ambulate and advance diet Time Spent With Patient Time: Total time spent is greater than 50% in coordination of care (as documented) at patient's floor/unit and/or counseling patient: Time with patient: less than 15 minutes COMPENSATION AND BENEFITS MANAGER- PN:Subj Post-Op Subjective Time Seen by Provider: 08:00 Date Seen: 07/10/22 Interval history: 52-year-old who is status post total laparoscopic hysterectomy, bilateral salpingo-oophorectomy, lysis of adhesions and cystoscopy by gynecology team performed on 07/09/2022. Patient also underwent bilateral mastectomy by General surgery. Patient today states that overnight pain was well controlled. She was able to drink fluids and eat a toast this morning. Denies nausea or vomiting. Has not passed gas yet. She has not stood up from bed and her Caraballo catheter is still in place. Vital signs have remained normal overnight. Post Operative Details: Post-operative day number 1: status post total laparoscopic hysterectomy, bilateral salpingo-oophorectomy, lyses of adhesions and cystoscopy Subjective: patient reports feeling better and patient is tolerating oral intake COMPENSATION AND BENEFITS MANAGER-PN: Obj Exam Physical Exam: Vital signs: Temp Pulse Resp BP Pulse Ox O2 Del Method O2 Flow Rate 98.3 F 89 16 99/62 96 Room Air 0 07/10/22 07:56 07/10/22 07:56 07/10/22 07:56 07/10/22 07:56 07/10/22 07:56 07/10/22 07:56 07/10/22 03:00 FiO2 40 07/09/22 23:00 Narrative: VITAL SIGNS: As noted above. GENERAL APPEARANCE: Alert, cooperative female in no acute distress. MOOD & AFFECT: Normal. ABDOMEN: Positive bowel sounds. Soft, non-distended and appropriately tender, incisions healing well, no surrounding erythema, induration or abnormal discharge. Stretch mills from skin under panniculus seem to be superficially and slightly red, no abnormal discharge. Pelvic: No abnormal vaginal discharge or bleeding. EXTREMITIES: Nonedematous. Well perfused. Nontender. Urinary Catheter Management: Urethral: Cath placed during this visit: no COMPENSATION AND BENEFITS MANAGER - PN: Obj Data Labs Labs: Laboratory Results - last 24 hr 07/09/22 07:50 Hgb 14.7
[2022-07-10 11:00] VITALS: BP 95/65; PULSE 65; RESP 16; TEMP 36.9; O2SAT 95
[2022-07-10 16:00] VITALS: BP 90/61; PULSE 61; RESP 14; TEMP 37.4; O2SAT 99
--- NOTE | 2022-07-10 18:57 | PC.NURSE ---
Pt A&O. Ambulating to the bathroom and hallway w/ SBA. Tolerating activity. Lap sites open to air w/ no drainage. Chest dressing c/d/i, rewrapped this am. ÁLVARO drains patent. Pt premedicated prior to ambulating for the first time. pt rating pain 2-7/10, PRN Oxycodone given w/ relief. BPs 90s/50s, HR 60s. Pt complained this am of feeling puffy, but states improvement this afternoon. Caraballo removed and pt has voided since.
[2022-07-10 19:00] VITALS: BP 108/70; PULSE 73; RESP 16; TEMP 37.1; O2SAT 99
[2022-07-10 23:00] VITALS: BP 95/63; PULSE 67; PULSE 73; RESP 16; TEMP 37.4; O2SAT 99
[2022-07-11] MEDS: OXYCODONE 5 MG TABLET PO ×2 (02:24→09:05)
[2022-07-11] MEDS: LACTATED RINGERS 1000 ML 1,000 ML 30 ML IV (02:24)
[2022-07-11 03:00] VITALS: BP 91/59; PULSE 71; RESP 16; TEMP 37.1; O2SAT 96
--- NOTE | 2022-07-11 06:12 | PC.NURSE ---
[id number]: Patient had an uneventful night. Pain well controlled with PRN medications. Denies n/v. Patient ambulated with SBA with no assistive devices. Patient rested well. Patient tolerating fluids and food and fluids TKO per provider's order. Patient remained vitally stable overnight. Patient doing well with BRP. Patient ambulated in schaeffer with staff during evening shift. Patient had slight swelling to BUE and decreased overnight with elevation. Will continue to monitor.
[2022-07-11 07:00] VITALS: BP 112/66; PULSE 71; PULSE 76; RESP 20; TEMP 36.8; O2SAT 95
--- NOTE | 2022-07-11 08:04 | PM.DS1 ---
DS: Providers Provider Date Seen: 07/11/22 Date of admission: 07/09/22 07:20 Primary care physician: Don Brown MD Admitting Clinician: Chiara Sainz MD Attending Physician on discharge: Chiara Sainz MD DS: Summary Hospital Course Hospital Course: Patient was admitted to the hospital after she underwent bilateral mastectomy with left sentinel node node biopsy and laparoscopic total hysterectomy with bilateral salpingo-oophorectomy. Patient did well postoperatively. Her pain was controlled with p.o. medication. She was tolerating a given diet. She was ambulating and urinating. Time Spent with Patient Time attestation: Total time spent providing and/or coordinating discharge services: Exam Narrative: Exam Narrative: Chest: Bilateral mastectomy incisions with clean dressing over the incisions. Bilateral drains with serosanguineous fluid. There are no expanding hematomas. Abdomen: Soft and not distended. Const: Vital Signs, click to edit/add: Vital Signs - 24 hr 07/10/22 11:00 07/10/22 16:00 07/10/22 19:00 Temperature 98.5 F 99.4 F 98.8 F Pulse Rate [Left P ulse Oximeter] 65 61 73 Respiratory Rate 16 14 16 Blood Pressure [Ri ght Arm] 95/65 90/61 108/70 Pulse Oximetry 95 99 99 Oxygen Delivery Me thod Room Air Room Air Room Air Oxygen Flow Rate 0 Fraction of Inspir ed Oxygen 40 07/10/22 23:00 07/10/22 23:00 07/11/22 03:00 Temperature 99.3 F 98.8 F Pulse Rate [Left P ulse Oximeter] 73 67 71 Respiratory Rate 16 16 16 Blood Pressure [Ri ght Arm] 95/63 91/59 L Pulse Oximetry 99 96 Oxygen Delivery Me thod Room Air Room Air Oxygen Flow Rate 0 0 Fraction of Inspir ed Oxygen 40 Discharge Plan Discharge Disposition: Home, Self-Care Date of Admission: 07/09/22 07:20 Attending Provider on Discharge: Chiara Sainz Consulting Providers: Leelee Morris Primary Care Provider: Don Brown Condition: Stable Anticipated Discharge Date/Time: 07/11/22 08:00 Discharge Medications: New oxycodone 5 mg capsule 5 mg PO Q6H PRN (Reason: pain) Qty: 30 0RF Continued ascorbic acid (vitamin C) 1,000 mg capsule 1 g PO DAILY albuterol sulfate 90 mcg/actuation aerosol powdr breath activated 2 inh inhalation Q4-6H PRN cholecalciferol (vitamin D3) 25 mcg (1,000 unit) capsule 25 mcg PO DAILY triamcinolone acetonide 0.5 % ointment 1 applic topical BID PRN Discharge Orders: Discharge Order (Routine); Ordered 07/11/22 Ordered By: Chiara Sainz Activity Level: No strenuous activity Activity Detail: Avoid raising your left arm above the shoulder level or reaching for something above you had. Avoid lifting anything more than 10 lb with the left arm for total of 4 weeks. Continue stripping drains 3 times a day and record output every day from each side. Continue wearing compressive dressing around your chest all the time until follow-up. Discharge Diet: Regular Follow Up Appointments: Chiara Sainz MD [Staff Physician] - (1 week [facility] for possible drain removal) Forms: [facility] Info Instructions
[2022-07-11 09:11] VITALS: BP 113/63; PULSE 54; RESP 20; TEMP 36.8
--- NOTE | 2022-07-11 10:14 | P.GYNPN_ITS ---
GAS GENERATOR OPERATOR - A/P Assessment and plan (1) Status post total hysterectomy and bilateral salpingo-oophorectomy (BSO): Problem details: TLH/ BSO/AUGUST / diagnostic cystoscopy Status: Acute Assessment and Plan: 1. Healing well from her hysterectomy 2. From a gynecologic point of view she is safe to be discharged from the hospital. (2) Status post bilateral mastectomy: Problem details: with sentinel node biopsy Status: Acute Postoperative Procedures: Procedures Operation Date: 07/09/22 09:00 Actual Procedure Side Surgeon p Bilateral Mastectomy, Left [place] Lymph Node Biopsy Bilateral Chiara Sainz MD s Total Laparoscopic Hysterectomy, Bilateral Salpingo-Oophorectomy, Diagnostic Cystoscopy, Lysis of Adhesions Bilateral Leelee Morris MD Postoperative status: doing well Time Spent With Patient Time with patient: less than 15 minutes GAS GENERATOR OPERATOR- PN:Subj Post-Op Subjective Time Seen by Provider: 10:05 Date Seen: 07/11/22 Interval history: Yessy is a 52-year-old 2 para 2002 (1 adopted child) who is status post total laparoscopic hysterectomy, bilateral salpingo-oophorectomy, lysis of adhesions and cystoscopy by gynecology team performed on 07/09/2022. Patient also underwent bilateral mastectomy by General surgery. Patient today states that overnight pain was well controlled. She was able to drink fluids and eat a toast this morning. Denies nausea or vomiting. Has not passed gas yet. She has not stood up from bed and her Caraballo catheter is still in place. Vital signs have remained normal overnight. Post Operative Details: Post-operative day number 2: status post total laparoscopic hysterectomy/bilateral salpingo oophorectomy/diagnostic cystoscopy/lysis of adhesions by GAS GENERATOR OPERATOR and bilateral mastectomy with sentinel node dissection by Dr. Sainz (general surgery). Yessy states that her pain is well managed with the oral pain medications she has been using. Has been tolerating a regular diet. She has passed flatus. She denies nausea or vomiting. She will be discharged by Dr. Sainz today. She has a follow-up for postop visit with me, Leelee Kay, on 07/22/2022. I will also see her at about 6 weeks postop to do a pelvic exam to verify that the vaginal cuff is well healed before allowing her to have vaginal intercourse. Subjective: patient reports feeling better, ambulating well, voiding without difficulty, patient is tolerating oral intake, passing flatus and patient desires discharge GAS GENERATOR OPERATOR-PN: Obj Exam Physical Exam: Vital signs: Temp Pulse Resp BP Pulse Ox O2 Del Method O2 Flow Rate 98.3 F 54 L 20 113/63 95 Room Air 0 07/11/22 09:11 07/11/22 09:11 07/11/22 09:11 07/11/22 09:11 07/11/22 07:00 07/11/22 07:00 07/11/22 03:00 FiO2 40 07/11/22 03:00 Narrative: General: Pleasant, , well groomed woman in no acute distress. Appears tired. Vital signs: Per electronic medical record Heart: Regular rate and rhythm without gallop, rub or murmur. Chest: Clear to auscultation bilaterally. Abdomen: Soft, nontender, mildly distended. No CVA or flank tenderness. Normal bowel sounds throughout. Incision(s): All laparoscopic incisions are clean, dry and intact with sutures and skin adhesive gel. No erythema, induration or skin separation. Extremities: No pain, compression stockings in place. Urinary Catheter Management: Urethral: Cath placed during this visit: no
[2022-07-11 11:00] VITALS: BP 101/68; PULSE 71
--- NOTE | 2022-07-11 11:43 | PC.NURSE ---
Nursing Care Hours: [id number] Pt this shift calm and cooperative with cares. C/o pain with movement 5/10. Pulses present, LS clear, BS hypoactive. Tolerating regular diet. ÁLVARO drains patent, stripped x1. Pt and pt daughter educated on how to strip the drains, measure and record output. Bandages changed on chest in front of mirror. Pt remained calm. Scant drainage on bandage, new bandage applied to both ÁLVARO sites, and over the chest. Rewrapped compression wrap. Abdominal skin folds observed to have open sores. Barrier cream provided. IV dc'd for discharge. Instructions went over with pt and daughter. All questions and concerns addressed. Wheeled out to vehicle in stable condition.
== END 2022-07-11 10:55 | disposition home or self-care (01) | DRG 362 ==
PROVIDERS: Obstetrics & Gynecology; Admitting Provider Surgery; PCP Family Medicine; Visit Provider Surgery
PROC: 0HTV0ZZ Resection of Bilateral Breast, Open Approach (ICD-10-PCS; principal; 2022-07-09 09:00)
PROC: 0UT94ZZ Resection of Uterus, Percutaneous Endoscopic Approach (ICD-10-PCS; 2022-07-09 09:00)
DX: C50.812 Malignant neoplasm of overlapping sites of left female breast (principal); Z17.0 Estrogen receptor positive status [ER+]; Z15.01 Genetic susceptibility to malignant neoplasm of breast; N73.6 Female pelvic peritoneal adhesions (postinfective); G89.18 Other acute postprocedural pain; R07.9 Chest pain, unspecified
CPT/HCPCS: 00840; 36415; 38792; 76942; 82565; 85018; 86850; 86900; 86901; 88307; A9270; A9541; C9290; J0330; J0690; J1100; J1170; J1200; J1885; J2250; J2405; J2704; J2710; J3010; J3475; J3490; J7120

== ENCOUNTER 2022-08-07 13:19 | Outpatient (CLI) | payer BC, SELFPAY ==
--- NOTE | 2022-08-07 13:30 | XR_ITS ---
Patient: MIGUEL MORALES Facility:?[facility] Patient ID:?[id number] Site Patient ID:?[id number]. Site :?[id number] Study:?DEXA-Bone Density SPINE AND HIPS-08/07/2022 2:18:26 PM Ordering Physician:Boyd Final Report: DXA BONE MINERAL DENSITY STUDY Current height (in): 59.0. Weight (lb): 227.0. Menopause age: 43. Ethnicity: White. Reason for exam: Breast cancer. 1. Have you had a previous hip or vertebral fracture? No. 2. Have you had any fractures during your adult life which did not result from significant trauma (e.g., auto accident)? No. 3. Did either of your parents have a hip fracture? No. 4. Do you smoke? No. 5. Have you ever taken Glucocorticoids? No. 6. Do you have rheumatoid arthritis? No. 7. Do you have secondary osteoporosis? No. 8. Do you drink 3 or more alcoholic drinks per day? No. 9. Are you being treated for osteoporosis? No. 10. Have you ever taken any of the following medications: Actonel, Evista, Fosamax, Miacalcin, Reclast, Boniva, Forteo, HRT (i.e. estrogen/hormone therapy), Protelos, Prolia, Vitamin D, Calcium, other ? please specify. ANSWER: Yes, vitamin D. 11. Do you have any of the following medical conditions: Anorexia or bulimia, asthma or emphysema, end stage renal disease, hyperparathyroidism, any seizure disorders, cancer, inflammatory bowel diseases, hysterectomy, other ? please specify. ANSWER: Yes, asthma, cancer, hysterectomy. 12. What was your maximum height (inches)? 61. 13. Do you perform weight bearing exercise regularly? No. 14. Do you regularly consume dairy products? Yes. 15. Do you drink caffeinated beverages? Yes. 16. At what age did your period start? 10. 17. Are you premenopausal? No. 18. How many full term pregnancies have you had? 2. 19. Have you ever missed your period for more than 6 months in a row (not including or menopause)? No. TECHNIQUE: Bone mineral density study was performed using the [employer]. FINDINGS: The results of the study expressed as bone mineral density (BMD) are as follows: Lumbar spine L1 to L3: BMD: 1.086 g/cm2. T-score: 0.6. Z-score: 1.6. Neck Left: BMD: 0.953 g/cm2. T-score: 0.9. Z-score: 1.9. Right: BMD: 0.970 g/cm2. T-score: 1.1. Z-score: 2.1. Total Left: BMD: 1.241 g/cm2. T-score: 2.5. Z-score: 3.1. Right: BMD: 1.150 g/cm2. T-score: 1.7. Z-score: 2.3. IMPRESSION: Normal bone density. Jason Figueroa M.D. Diagnostic Radiologist [email or web address] DSM/hedyw: D& Transcribed: 11:45 am DW/Dictated by: Jason Figueroa MD @ 08/08/2022 9:35:00 AM Signed by:Erik Figueroa MD @08/08/2022 12:49:12 PM (Electronic Signature)
== END 2022-08-07 13:20 | disposition home or self-care (01) ==
LOC: RAD 08-08 09:05
PROVIDERS: PCP Family Medicine; Visit Provider Internal Medicine Hematology & Oncology
DX: N95.1 Menopausal and female climacteric states (principal)
CPT/HCPCS: 77080

== ENCOUNTER 2022-12-12 17:18 | Outpatient (CLI) | payer BC, SELFPAY | END 2022-12-12 17:19 | disposition home or self-care (01) | LOC: AMB 12-13 11:55 | PROVIDERS: PCP Family Medicine; Visit Provider Emergency Medicine Emergency Medical Services | DX: R53.1 Weakness (principal); J18.9 Pneumonia, unspecified organism | CPT/HCPCS: A0425; A0427 ==

== ENCOUNTER 2023-01-16 08:30 | Outpatient (RCR) | payer BC, SELFPAY ==
[2022-09-23] MEDS: HEPARIN 500 UNIT/5 ML SYRINGE IVF (08:50)
[2022-09-23] MEDS: SODIUM CHLORIDE 0.9 % (FLUSH) 10 ML SYRINGE IVF (08:51)
== END 2023-01-18 23:59 | disposition home or self-care (01) ==
LOC: CCIC 08:30
PROVIDERS: PCP Family Medicine; Referring Provider Family Medicine; Visit Provider Physician Assistant
DX: C50.912 Malignant neoplasm of unspecified site of left female breast (principal); Z17.0 Estrogen receptor positive status [ER+]; Z15.01 Genetic susceptibility to malignant neoplasm of breast; R55 Syncope and collapse; Z79.811 Long term (current) use of aromatase inhibitors; Z90.13 Acquired absence of bilateral breasts and nipples
CPT/HCPCS: 99211; 99212; 99213; 99214; 99215; J1642

== ENCOUNTER 2023-01-27 11:07 | Outpatient (CLI) | payer BC, SELFPAY ==
--- NOTE | 2023-01-27 11:15 | CRLHL7_ITS ---
For Patients: As a result of the Century Cures Act, medical imaging exams and procedure reports are released immediately into your electronic medical record. You may view this report before your referring provider. If you have questions, please contact your health care provider. INDICATION: Palpable lump lateral left chest wall scar. History of bilateral mastectomies for a left-sided breast cancer in 2021. The patient did not require radiation therapy but did have chemotherapy. TECHNIQUE: Directed ultrasound of the lateral left chest wall soft tissues with this radiologist present. FINDINGS: Along the lateral scar of the left chest wall is a small palpable subcutaneous nodule measuring 5 x 6 mm. This is at approximately the 3 o`clock position far laterally. There is some shadowing. No increased vascularity. This may reflect a foreign body reaction and/or changes from surgery/scar formation. Regardless, its appearance is not compatible with malignancy. Consider short interval follow-up ultrasound in three months` time. Clinical correlation is also recommended. These findings were discussed briefly with the patient. IMPRESSION: 5 x 6 mm superficial palpable nodule with shadowing in the left lateral chest wall possibly a foreign body reaction or merely a portion of the patient`s scar. ACR: Not applicable. Dictated by Dontae Peoples MD @ 01/27/2023 3:35:12 PM (Electronically Signed)
--- NOTE | 2023-03-05 12:30 | ONC.NURNOTE ---
Mud Tank Operator left message with Yessy stating that her Cancer treatment deferment request form has been filled out by Dr. Moseley and can be picked up. Form is in her chart.
== END 2023-01-27 11:08 | disposition home or self-care (01) ==
LOC: US 11:08
PROVIDERS: PCP Family Medicine; Visit Provider Physician Assistant
DX: C50.919 Malignant neoplasm of unspecified site of unspecified female breast (principal); R22.2 Localized swelling, mass and lump, trunk
CPT/HCPCS: 76882

== ENCOUNTER 2023-10-08 08:30 | Outpatient (RCR) | payer BC, SELFPAY ==
--- NOTE | 2023-02-03 10:50 | ONC.NURNOTE ---
Ultrasound results reviewed by Mary Salgado PA-C. Per Mary, no malignancy noted, follow up in Apr as previously scheduled and f/u sooner if anything changes. Tuber Helper called pt and left message with information and instructed to call [facility] with changes.
== END 2023-10-14 23:59 | disposition home or self-care (01) ==
LOC: CCIC 08:30
PROVIDERS: PCP Family Medicine; Referring Provider Family Medicine; Visit Provider Internal Medicine Hematology & Oncology
DX: C50.912 Malignant neoplasm of unspecified site of left female breast (principal); Z17.0 Estrogen receptor positive status [ER+]; Z79.811 Long term (current) use of aromatase inhibitors; R00.1 Bradycardia, unspecified; Z15.01 Genetic susceptibility to malignant neoplasm of breast; Z90.13 Acquired absence of bilateral breasts and nipples
CPT/HCPCS: 99214; G0463

== ENCOUNTER 2024-03-04 14:13 | Outpatient (CLI) | payer BC, SELFPAY | END 2024-03-04 14:14 | disposition home or self-care (01) | LOC: NFLDREF 14:14 | PROVIDERS: PCP Family Medicine; Visit Provider Surgery | DX: Z11.1 Encounter for screening for respiratory tuberculosis (principal) | CPT/HCPCS: 86480 ==

== ENCOUNTER 2024-06-03 08:30 | Outpatient (RCR) | payer BC, SELFPAY | END 2024-08-03 23:59 | disposition home or self-care (01) | LOC: CCIC 08:30 | PROVIDERS: PCP Family Medicine; Referring Provider Family Medicine; Visit Provider Physician Assistant | DX: C50.912 Malignant neoplasm of unspecified site of left female breast (principal); Z17.0 Estrogen receptor positive status [ER+]; Z79.811 Long term (current) use of aromatase inhibitors; Z90.13 Acquired absence of bilateral breasts and nipples | CPT/HCPCS: 99214; G0463 ==

== ENCOUNTER 2024-09-15 15:23 | Outpatient (CLI) | payer BC, SELFPAY ==
--- NOTE | 2024-09-15 15:30 | CRLHL7_ITS ---
For Patients: As a result of the Century Cures Act, medical imaging exams and procedure reports are released immediately into your electronic medical record. You may view this report before your referring provider. If you have questions, please contact your health care provider. DXA BONE MINERAL DENSITY STUDY Reason for exam: On aromatase inhibitors. Current height (in): 59. Weight (lb): 240. Menopause age: 43. Ethnicity: White. 1. Have you had a previous hip or vertebral fracture? No. 2. Have you had any fractures during your adult life which did not result from significant trauma (e.g., auto accident)? No. 3. Did either of your parents have a hip fracture? No. 4. Do you smoke? No. 5. Have you ever taken Glucocorticoids? Yes. 6. Do you have rheumatoid arthritis? No. 7. Do you have secondary osteoporosis? No. 8. Do you drink 3 or more alcoholic drinks per day? No. 9. Are you being treated for osteoporosis? No. 10. Have you ever taken any of the following medications: Actonel, Evista, Fosamax, Miacalcin, Reclast, Boniva, Forteo, HRT (i.e. estrogen/hormone therapy), Protelos, Prolia, Vitamin D, Calcium, other ??? please specify. ANSWER: Yes, vitamin D and calcium. 11. Do you have any of the following medical conditions: Anorexia or bulimia, asthma or emphysema, end stage renal disease, hyperparathyroidism, any seizure disorders, cancer, inflammatory bowel diseases, hysterectomy, other ??? please specify. ANSWER: Yes, asthma or emphysema, breast cancer, hysterectomy. 12. What was your maximum height (inches)? 61. 13. Do you perform weight bearing exercise regularly? No. 14. Do you regularly consume dairy products? Yes. 15. Do you drink caffeinated beverages? Yes. 16. At what age did your period start? 10. 17. Are you premenopausal? No. 18. How many full-term pregnancies have you had? 2. 19. Have you ever missed your period for more than 6 months in a row (not including or menopause)? No. TECHNIQUE: Bone mineral density study was performed using the [employer]. FINDINGS: The results of the study expressed as bone mineral density (BMD) are as follows: Lumbar spine L1 to L3: BMD: 1.034 g/cm2. T-score: 0.1. Z-score: 1.3. Neck Left: BMD: 0.958 g/cm2. T-score: 1.0. Z-score: 2.1. Right: BMD: 0.957 g/cm2. T-score: 1.0. Z-score: 2.1. Total Left: BMD: 1.246 g/cm2. T-score: 2.5. Z-score: 3.2. Right: BMD: 1.166 g/cm2. T-score: 1.8. Z-score: 2.6. IMPRESSION: Normal bone density. *Comparison exams done prior to 08/2019 were performed on different unit, [employer]. COMPARISON: Compared with scan of 08/07/2022, the bone mineral density has decreased by 4.8 percent at the spine and increased by 0.9 percent at the hip. Jason Figueroa M.D. Diagnostic Radiologist [email or web address] ABIODUN/albertina eng/Dictated by: Jason Figueroa MD @ 09/16/2024 9:01:00 AM (Electronically Signed)
== END 2024-09-15 15:24 | disposition home or self-care (01) ==
LOC: RAD 15:23
PROVIDERS: PCP Family Medicine; Visit Provider Physician Assistant
DX: Z79.811 Long term (current) use of aromatase inhibitors (principal)
CPT/HCPCS: 77080

== ENCOUNTER 2024-10-14 10:58 | Outpatient (CLI) | payer BC, SELFPAY ==
--- NOTE | 2024-10-14 11:15 | CRLHL7_ITS ---
For Patients: As a result of the Century Cures Act, medical imaging exams and procedure reports are released immediately into your electronic medical record. You may view this report before your referring provider. If you have questions, please contact your health care provider. Indication: Chest wall lump Technique: Grayscale ultrasound of the right anterior chest wall performed in the area of concern adjacent to the Port-A-Cath scar. Comparison: None Findings: Scar tissue is present. No fluid collection or mass. Impression: No suspicious findings. Dictated by Jason Figueroa MD @ 10/14/2024 11:47:30 AM (Electronically Signed)
== END 2024-10-14 10:59 | disposition home or self-care (01) ==
LOC: US 10:59
PROVIDERS: PCP Obstetrics & Gynecology; Visit Provider Internal Medicine Hematology & Oncology
DX: R22.2 Localized swelling, mass and lump, trunk (principal)
CPT/HCPCS: 76604